=== PATIENT | female | born 1945 | race Caucasian/White ===

== ENCOUNTER 2023-07-30 10:09 | Emergency (ER) | payer MEDICARE, SELFPAY ==
[2023-07-30 10:20] VITALS: BP 184/84; PULSE 88; RESP 18; TEMP 36.7; O2SAT 94; BMI 25.6
--- NOTE | 2023-07-30 10:34 | CRLHL7_ITS ---
For Patients: As a result of the Cures Act, medical imaging exams and procedure reports are released immediately into your electronic medical record. You may view this report before your referring provider. If you have questions, please contact your health care provider. INDICATION: shortness of breath TECHNIQUE: Chest 2 views COMPARISON: None FINDINGS: There is cardiac silhouette enlargement. Ectatic aorta. No infiltrate or edema. No pneumothorax. No fracture. Suspect hiatal hernia. IMPRESSION: No acute findings. Dictated by Aneesh De Anda MD @ 07/30/2023 11:23:37 AM (Electronically Signed)
--- NOTE | 2023-07-30 11:00 | CRLHL7_ITS ---
For Patients: As a result of the Century Cures Act, medical imaging exams and procedure reports are released immediately into your electronic medical record. You may view this report before your referring provider. If you have questions, please contact your health care provider. INDICATION: RUQ and right back pain. COMPARISON: none TECHNIQUE: Real time haywood scale imaging and color Doppler analysis was performed of the right upper quadrant. FINDINGS: The patient`s liver is of normal size and has uniform echogenicity. There is a normal appearance of the hepatic IVC and proximal abdominal aorta. There is no evidence of ascites. The gallbladder is of normal size and there are echogenic foci within the gallbladder lumen measuring up to 6 millimeters. The gallbladder wall measures 1.4 mm in thickness. The common bile duct is of normal size and measures 4 mm in diameter at the level of the aleksandra hepatis. The pancreas appears normal. There is no evidence of a stone or hydronephrosis within the right kidney. The right kidney measures 8.0 cm in length. IMPRESSION: Cholelithiasis. Dictated by Aneesh De Anda MD @ 07/30/2023 12:15:21 PM (Electronically Signed)
[2023-07-30 11:01] VITALS: O2SAT 97
--- NOTE | 2023-07-30 11:23 | ED_ITS ---
HPI - General Adult General Chief complaint: Abdominal Pain Stated complaint: abdominal pain Time Seen by Provider: 07/30/23 10:17 Source: patient Mode of arrival: ambulatory Limitations: no limitations History of Present Illness HPI narrative: 78-year-old female presenting today with right upper quadrant abdominal pain that started last night. Patient had fried fish for dinner. States that the pain is constant, nothing makes it better or worse. However it does get worse in waves. The pain does not radiate. She also has a separate pain that she describes as chest pain, located anterior chest and is substernal. She states she has had that for approximately 2 months. She complains of feeling short of breath for 2 months as well. States that she has an echocardiogram scheduled sometime in August. She is here today because of the right upper quadrant pain, chest pain is unchanged. She denies any fevers or chills. She denies having pain like this before. She denies nausea or vomiting. Has not wanted to eat anything today. Past medical history significant for ruptured diaphragmatic hernia, history of stroke with mild dysarthria, COPD, memory loss, hyperlipidemia, hypertension. Recent episode of bradycardia, metoprolol was stopped. Related Data Home Medications Medication Instructions Recorded Confirmed albuterol sulfate 90 mcg/actuation 2 puff inhalation Q6H PRN 06/21/23 07/30/23 aerosol inhaler atorvastatin 40 mg tablet (Lipitor) 40 mg PO QDAY 06/21/23 07/30/23 aspirin 81 mg tablet,delayed 81 mg PO QDAY 07/04/23 07/30/23 release coenzyme Q10 100 mg capsule 100 mg PO QDAY 07/04/23 07/30/23 (CoQ-10) ginkgo biloba 40 mg tablet 40 mg PO QDAY 07/04/23 07/30/23 ginkgo biloba leaf extract 120 1 tab PO .COMPLEX 07/04/23 07/30/23 mg-choline bitartrate 110 mg tablet ([facility] loratadine 10 mg tablet (Allergy 10 mg PO QDAY 07/04/23 07/30/23 Relief (loratadine)) potassium gluconate 550 mg (90 mg) 550 mg PO QDAY 07/04/23 07/30/23 tablet turmeric root extract 500 mg 500 mg PO QDAY 07/04/23 07/30/23 capsule Previous Rx's Medication Instructions Recorded enalapril maleate 5 mg tablet 5 mg PO ONCE 30 days #30 tabs 07/26/23 Allergies Allergy/AdvReac Type Severity Reaction Status Date / Time ciprofloxacin Allergy Verified 07/30/23 08:50 grass pollen Allergy Verified 07/30/23 08:50 Review of Systems Status of ROS: Reports: 10 or more systems reviewed and unremarkable except as noted in History and below [facility] Medical History History of breast cancer ?Z85.3 - Personal history of malignant neoplasm of breast (ICD-10) Surgical History Postoperative rupture of diaphragm History of bunionectomy ?Z98.890 - Other specified postprocedural states (ICD-10) History of colonoscopy ?Z98.890 - Other specified postprocedural states (ICD-10) History of rhinoplasty ?Z98.890 - Other specified postprocedural states (ICD-10) History of foot surgery ?Z98.890 - Other specified postprocedural states (ICD-10) History of vaginal hysterectomy ?Z90.710 - Acquired absence of both cervix and uterus (ICD-10) History of D&C ?Z98.890 - Other specified postprocedural states (ICD-10) History of tubal ligation ?Z98.51 - Tubal ligation status (ICD-10) Status post repair of paraesophageal diaphragmatic hernia ?Z98.890 - Other specified postprocedural states (ICD-10) ?Z87.19 - Personal history of other diseases of the digestive system (ICD-10) History of lumpectomy of right breast ?Z98.890 - Other specified postprocedural states (ICD-10) Family History Mother Stroke Coronary artery disease Myocardial infarction Kidney disease Father Myocardial infarction Sister Depression Osteoarthritis Heart disease Daughter Myocardial infarction DVT (deep venous thrombosis) Son Myocardial infarction Nicotine dependence Celiac disease Son HIV (human immunodeficiency virus infection) Sister of unknown cause Alcohol abuse Lung disease Blood disease Social History Narrative: . 3 children. Retired. Non-smoker. No illicit drug use. Alcohol, rare. Smoking Status: Never smoker Do you use any of these nicotine containing products: None Second hand tobacco smoke exposure: No How often do you have a drink containing alcohol: never AUDIT-C Alcohol total score: 0 Non-prescribed substance use: denies use service: No Exam Narrative: Exam Narrative: Well-nourished well-developed patient in no acute distress. Alert and oriented x3. Answers questions appropriately. Mood and affect are appropriate. Thoughts are goal oriented and rational. No tangential or magical thinking noted. Patient speaks in full sentences without needing to catch her breath. She does have mild dysarthria. HEENT: Normocephalic atraumatic. Pupils are equally round reactive to light. Extraocular muscles are intact. Conjunctivae are moist without any icterus noted. Moist mucous membranes. Neck is soft. Cardiovascular: Heart is regular rate and rhythm. She also has some discomfort with palpation of the sternum. Lungs: Clear to auscultation bilaterally no wheezes rhonchi or rales are appreciated. Deep breaths cause discomfort in the right upper quadrant. Abdomen: Soft and nondistended with normal bowel sounds. She has right upper quadrant tenderness with a positive Brock sign. Mild epigastric tenderness. Extremities: Bilateral lower extremities are without edema. Skin: Well perfused without any obvious rashes. Const: Vital Signs, click to edit/add: Vital Signs - 24 hr 07/30/23 10:20 07/30/23 11:01 07/30/23 12:35 Temperature 98.1 F 97.8 F Pulse Rate [Right Pulse Oximeter] 88 78 Respiratory Rate 18 16 Blood Pressure [Ri ght Upper Arm] 184/84 H 155/71 H Pulse Oximetry 94 97 96 Oxygen Delivery Me thod Room Air Room Air Course Course ED Course: CBC was unremarkable. D-dimer within normal limits. Chemistries, LFTs and CRP normal. Normal troponin. EKG done read by me, shows normal sinus rhythm with a pulse of 80. Chest x-ray, read by me, does not show any acute pathology. Urinalysis was unremarkable. Right upper quadrant ultrasound shows cholelithiasis. Patient received Tylenol while she was here, her pain did subside. Vital Signs Vital signs: Initial Vital Signs Temperature 98.1 F 07/30/23 10:20 Temperature Source Temporal Artery Scan 07/30/23 10:20 Pulse Rate 88 07/30/23 10:20 Respiratory Rate 18 07/30/23 10:20 Blood Pressure 184/84 H 07/30/23 10:20 Blood Pressure Mean 117 H 07/30/23 10:20 Blood Pressure Position Sitting 07/30/23 10:20 Pulse Oximetry 94 07/30/23 10:20 Oxygen Delivery Method Room Air 07/30/23 10:20 Vital Signs Temperature 98.1 F 07/30/23 10:20 Pulse Rate 88 07/30/23 10:20 Respiratory Rate 18 07/30/23 10:20 Blood Pressure 184/84 H 07/30/23 10:20 Pulse Oximetry 94 07/30/23 10:20 Oxygen Delivery Method Room Air 07/30/23 10:20 Temperature 97.8 F 07/30/23 12:35 Pulse Rate 78 07/30/23 12:35 Respiratory Rate 16 07/30/23 12:35 Blood Pressure 155/71 H 07/30/23 12:35 Pulse Oximetry 96 07/30/23 12:35 Oxygen Delivery Method Room Air 07/30/23 12:35 Medications Administered Medications: Discontinued Medications Generic Name Dose Route Start Last Admin Trade Name Jcq PRN Reason Stop Dose Admin Acetaminophen 1,000 mg 07/30/23 12:25 07/30/23 12:30 Acetaminophen 500 Mg Tablet PO 07/30/23 12:26 1,000 mg ONCE ONE Administration Morphine Sulfate 2 mg 07/30/23 11:19 07/30/23 12:30 Morphine 2 Mg/Ml Inj IVP 07/30/23 11:20 Not Given ONCE ONE Medical Decision Making MDM Narrative Medical decision making narrative: 78-year-old female with cholelithiasis. She is currently pain-free. Patient will be discharged home with Tylenol as needed for pain (she does not want any narcotics), bland diet and follow up with outpatient surgery. Medical Records Medical records reviewed: Yes I reviewed the patient's medical records Lab Data Lab results reviewed: Yes I reviewed the patient's lab results Labs: Lab Results 07/30/23 07/30/23 Range/Units 10:50 12:25 WBC 5.36 (4.50-11.00) K/uL RBC 4.37 (4.00-5.20) m/uL Hgb 12.9 (12.0-16.0) gm/dL Hct 38.9 (33.0-51.0) % MCV 89 (80-100) fL MCH 30 (26-34) pg MCHC 33 (32-36) gm/dL RDW Coeff of Eve 12.1 (11.5-15.5) % Plt Count 249 (140-440) K/uL Neut % (Auto) 57.6 (42.0-72.0) % Lymph % (Auto) 29.9 (20-44) % [place] % (Auto) 8.8 (0.0-11.0) % Eos % (Auto) 2.6 (0.0-7.0) % Baso % (Auto) 0.2 (0.0-3.0) % Neut # (Auto) 3.09 (1.7-7.0) K/uL Lymph # (Auto) 1.60 (0.90-2.90) K/uL [place] # (Auto) 0.50 (0.00-0.90) K/UL Eos # (Auto) 0.14 (0.00-0.50) K/uL Baso # (Auto) 0.01 (0.00-0.30) K/uL Abs Immat Gran (auto) 0.05 (0.00-0.30) K/uL Imm/Tot Granulo (auto) 0.9 % D-Dimer Quant (PE/DVT) 0.48 (0.00-0.50) ug/ml Sodium 140 (135-149) mmol/L Potassium 4.2 (3.6-5.1) mmol/L Chloride 105 (96-114) mmol/L Carbon Dioxide 24 (20-32) mmol/L Anion Gap 11 (7-15) mEq/L BUN 15 (7-30) mg/dL Creatinine 0.6 (0.5-1.5) mg/dL Estimated Creat Clear 35.49 Estimated GFR 91 ml/min Glucose 113 (60-115) mg/dL Lactate 0.8 (0.5-1.9) mmol/L Calcium 9.7 (8.4-10.6) mg/dL Total Bilirubin 0.5 (0.1-1.5) mg/dL Direct Bilirubin 0.1 (0.0-0.5) mg/dL AST 30 (12-35) U/L ALT 19 (4-35) U/L Alkaline Phosphatase 76 (40-150) U/L Troponin I < 0.01 L (0.01-0.04) ng/mL C-Reactive Protein < 0.5 L (0.5-1.0) mg/dL Total Protein 8.5 H (6.0-8.3) g/dL Albumin 5.0 (3.3-5.0) g/dL Lipase 133 (23-300) U/L Urine Color Yellow (Yellow) Urine Appearance Clear (Clear) Urine pH 7.0 (5.0-8.5) Ur Specific [place] 1.015 (1.000-1.030) Urine Protein Negative (Negative) Urine Glucose (UA) Negative (Negative) Urine Ketones Negative (Negative) Urine Blood Negative (Negative) Urine Nitrite Negative (Negative) Urine Bilirubin Negative (Negative) Urine Urobilinogen 0.2 (0.2-1.0) Ur Leukocyte Esterase Trace A (Negative) Urine RBC 0-2 (0-2) Urine WBC 0-2 (0-5) Ur Squamous Epith Cells Few (None-Few) Urine Bacteria Few A (None) Imaging Data Chest x-ray: Attestation: I have reviewed the pertinent imaging results. Radiologist's impression: Chest 2 views COMPARISON: None FINDINGS: There is cardiac silhouette enlargement. Ectatic aorta. No infiltrate or edema. No pneumothorax. No fracture. Suspect hiatal hernia. IMPRESSION: No acute findings. US - abdomen: Attestation: I have reviewed the pertinent imaging results. Radiologist's impression: Real time haywood scale imaging and color Doppler analysis was performed of the right upper quadrant. FINDINGS: The patient`s liver is of normal size and has uniform echogenicity. There is a normal appearance of the hepatic IVC and proximal abdominal aorta. There is no evidence of ascites. The gallbladder is of normal size and there are echogenic foci within the gallbladder lumen measuring up to 6 millimeters. The gallbladder wall measures 1.4 mm in thickness. The common bile duct is of normal size and measures 4 mm in diameter at the level of the aleksandra hepatis. The pancreas appears normal. There is no evidence of a stone or hydronephrosis within the right kidney. The right kidney measures 8.0 cm in length. IMPRESSION: Cholelithiasis. Discharge Plan Discharge Clinical Impression: Cholelithiasis Patient Disposition: Home, Self-Care Condition: Stable Additional Instructions: You will need to follow-up with a general surgeon to discuss removing the gallbladder. Phone number to our [facility] will be provided to you. Okay to take Tylenol 1000 mg every 8 hours as needed for pain, should the pain return. Recommend a very bland diet until you see the surgeon: Fruits, vegetables, bread. Return to the ER if the pain returns and is not controlled, you develop fever or you cannot stop vomiting. Prescriptions: No Action coenzyme Q10 [CoQ-10] 100 mg capsule 100 mg PO QDAY ginkgo biloba 40 mg tablet 40 mg PO QDAY Rx Instructions: give with meal/snack aspirin 81 mg tablet,delayed release (DR/EC) 81 mg PO QDAY loratadine [Allergy Relief (loratadine)] 10 mg tablet 10 mg PO QDAY potassium gluconate 550 mg (90 mg) tablet 550 mg PO QDAY turmeric root extract 500 mg capsule 500 mg PO QDAY [facility] Memory Support 120 mg- 110 mg tablet 1 tab PO .COMPLEX Rx Instructions: 1 tab orally; enalapril maleate 5 mg tablet 5 mg PO ONCE 30 Days Qty: 30 0RF albuterol sulfate 90 mcg/actuation HFA aerosol inhaler 2 puff inhalation Q6H PRN atorvastatin [Lipitor] 40 mg tablet 40 mg PO QDAY Follow Up/Referrals: Jesika Reeder APRN, [employer] [Primary Care Provider] - Stand Alone Forms: [employer] Info Instructions
[2023-07-30 11:29] LABS: Basophils Absolute Auto 0.01 K/uL (0.00-0.30); Basophils Percent Auto 0.2 % (0.0-3.0); Eosinophils Absolute Auto 0.14 K/uL (0.00-0.50); Eosinophils Percent Auto 2.6 % (0.0-7.0); Hematocrit 38.9 % (33.0-51.0); Hemoglobin* 12.9 gm/dL (12.0-16.0); Immature Granulocytes Abs Auto 0.05 K/uL (0.00-0.30); Immature Granulocytes Pct Auto 0.9 %; Lymphocytes Percent Auto 29.9 % (20-44); Mean Corpuscular HGB Conc 33 gm/dL (32-36); Mean Corpuscular Hemoglobin 30 pg (26-34); Mean Corpuscular Volume 89 fL (80-100); Monocytes Percent Auto 8.8 % (0.0-11.0); Neutrophils Absolute Auto 3.09 K/uL (1.7-7.0); Neutrophils Percent Auto 57.6 % (42.0-72.0); Platelet Count* 249 K/uL (140-440); RDW Coefficient of Variation % 12.1 % (11.5-15.5); Red Blood Count 4.37 m/uL (4.00-5.20); White Blood Count* 5.36 K/uL (4.50-11.00)
[2023-07-30 11:30] LABS: Lactate* 0.8 mmol/L (0.5-1.9)
[2023-07-30 11:40] LABS: Chloride* 105 mmol/L (96-114); Potassium* 4.2 mmol/L (3.6-5.1); Sodium* 140 mmol/L (135-149)
[2023-07-30 11:42] LABS: Alkaline Phosphatase* 76 U/L (40-150); Aspartate Amino Transferase* 30 U/L (12-35); Bilirubin Direct* 0.1 mg/dL (0.0-0.5); Bilirubin Total* 0.5 mg/dL (0.1-1.5); Lipase* 133 U/L (23-300); Total Protein* 8.5 g/dL (6.0-8.3)
[2023-07-30 11:43] LABS: Alanine Aminotransferase* 19 U/L (4-35); Creatinine* 0.6 mg/dL (0.5-1.5); Est. Creatinine Clearance* 35.49; Estimated Glomerular Filt Rate 91 ml/min
[2023-07-30 11:44] LABS: Anion Gap 11 mEq/L (7-15); Blood Urea Nitrogen* 15 mg/dL (7-30); Calcium* 9.7 mg/dL (8.4-10.6); Carbon Dioxide* 24 mmol/L (20-32); Glucose* 113 mg/dL (60-115); Slide Review Reflex No
[2023-07-30 11:45] LABS: D Dimer Quantitative* 0.48 ug/ml (0.00-0.50)
[2023-07-30 11:47] LABS: C Reactive Protein* < 0.5 mg/dL (0.5-1.0)
--- NOTE | 2023-07-30 11:47 | PC.NURSE ---
Pt states she is having no pain right rib, ruq currently. s/o headache 11/14. declines morphine as it 'makes me very nauseous.
[2023-07-30 11:55] LABS: Troponin I* < 0.01 ng/mL (0.01-0.04)
[2023-07-30] MEDS: ACETAMINOPHEN 500 MG TABLET 1000 MG PO (12:30)
[2023-07-30 12:35] VITALS: BP 155/71; PULSE 78; RESP 16; TEMP 36.6; O2SAT 96
[2023-07-30 12:35] LABS: Appearance Urine Clear (Clear); Bilirubin Urine Negative (Negative); Blood Urine Negative (Negative); Color Urine Yellow (Yellow); Glucose Urine Negative (Negative); Ketones Urine Negative (Negative); Leukocyte Esterase Urine Trace (Negative); Nitrite Urine Negative (Negative); Protein Urine Negative (Negative); Specific Gravity Urine 1.015 (1.000-1.030); Urobilinogen Urine 0.2 (0.2-1.0)
--- NOTE | 2023-07-30 12:35 | PC.NURSE ---
Pt drinking water and eating saltines. Tylenol given for headache 11/14. Denies any recurring chest or rib pain.
[2023-07-30 12:47] LABS: Bacteria Urine Few; RBC Urine 0-2 (0-2); Squamous Epithelial Cell Urine Few (None-Few); WBC Urine 0-2 (0-5)
== END 2023-07-30 13:28 | disposition home or self-care (01) ==
PROVIDERS: Emergency Provider Family Medicine; PCP Nurse Practitioner Family
DX: K80.20 Calculus of gallbladder without cholecystitis without obstruction (principal)
CPT/HCPCS: 36415; 71046; 76705; 80048; 80076; 81001; 83605; 83690; 84484; 85025; 85379; 86140; 87086; 93005; 94761; 96374; 99284; 99285; A9270

== ENCOUNTER 2023-08-15 14:32 | Outpatient (CLI) | payer MEDICARE, SELFPAY | END 2023-08-15 14:33 | disposition home or self-care (01) | LOC: RAD 14:34 | PROVIDERS: PCP Nurse Practitioner Family; Visit Provider Nurse Practitioner Family | DX: R00.1 Bradycardia, unspecified (principal); I34.0 Nonrheumatic mitral (valve) insufficiency | CPT/HCPCS: 93306 ==

== ENCOUNTER 2023-08-21 13:39 | Outpatient (CLI) | payer MEDICARE, SELFPAY | END 2023-08-21 13:40 | disposition home or self-care (01) | LOC: RAD 13:40 | PROVIDERS: PCP Nurse Practitioner Family; Visit Provider Nurse Practitioner Family | DX: R00.1 Bradycardia, unspecified (principal) | CPT/HCPCS: 93225; 93226 ==

== ENCOUNTER 2023-08-27 10:08 | Outpatient (CLI) | payer MEDICARE, SELFPAY | END 2023-08-27 10:09 | disposition home or self-care (01) | PROVIDERS: PCP Nurse Practitioner Family; Visit Provider Nurse Practitioner Family | DX: I10 Essential (primary) hypertension (principal); Z79.899 Other long term (current) drug therapy | CPT/HCPCS: 80053; 85025 ==

== ENCOUNTER 2023-10-15 07:36 | Outpatient (CLI) | payer MEDICARE, SELFPAY ==
[2023-10-15] MEDS: REGADENOSON 0.4 MG/5 ML SYRINGE IVP (09:20)
[2023-10-15] MEDS: SODIUM CHLORIDE 0.9 % (FLUSH) 10 ML SYRINGE IVF (09:20)
[2023-10-15 10:00] VITALS: BP 146/82; PULSE 99; RESP 16
--- NOTE | 2023-10-15 10:52 | W.PM.STED ---
Stress Test Note Date Date of test: 10/15/23 Providers Primary care provider: Jesika Reeder Stress test physician: Ari Junior Stress Test Note Stress test ordered: Lexiscan Indication for test: chest pain Stress test medicine: Lexiscan Results discussion: This pleasant 78-year-old female presents here for the above test after discussion the risks benefits side effects and review of the cardiac stress test medical history form she would like to proceed. Pretest EKG shows normal sinus rhythm, there is some ST wave irregularities noted over the precordial leads. At baseline peer initial rhythm is sinus, ventricular rate is 84 blood pressure 146 on 81. Standard Lexiscan walking protocol is done over a 5 minute. Her maximum heart rate was 128 which is 107% of the maximum. She tolerated the test well with a little bit of nausea, and some mild chest discomfort. This resolved in her recovery. No acute ST wave changes are noted on review of the tracing, there is no dysrhythmias, Impression: Negative electrographic portion of Lexiscan Follow up suggested: Await review from nuclear Medicine and Cardiology. Clinical correlation with this will be needed she recovered fully, and left this testing facility in excellent condition.
== END 2023-10-15 07:37 | disposition home or self-care (01) ==
LOC: STRESS 07:36
PROVIDERS: PCP Nurse Practitioner Family; Visit Provider Family Medicine
DX: Z01.818 Encounter for other preprocedural examination (principal); R07.9 Chest pain, unspecified; Z86.73 Personal history of transient ischemic attack (TIA), and cerebral infarction without residual deficits; E78.00 Pure hypercholesterolemia, unspecified
CPT/HCPCS: 78452; 93016; 93017; A9500; J2785

== ENCOUNTER 2023-10-29 13:05 | Outpatient (CLI) | payer MEDICARE, SELFPAY | END 2023-10-29 13:06 | disposition home or self-care (01) | PROVIDERS: PCP Nurse Practitioner Family; Visit Provider Nurse Practitioner Family | DX: Z01.818 Encounter for other preprocedural examination (principal) | CPT/HCPCS: 80053; 85025 ==

== ENCOUNTER 2023-11-04 07:28 | Day surgery (SDC) | payer MEDICARE, SELFPAY ==
[2023-11-04] VITALS (27 sets, daily range): BP systolic 59–148; BP diastolic 34–85; PULSE 41–91; RESP 16–20; TEMP 36.1–36.6; O2SAT 91–98; BMI 26.8
--- OUTSIDE RECORDS SUMMARY | 2023-11-04 07:30 | XMS_ITS | Clinical Summary ---
Author Name Unknown Organization [facility] Address [place], [place] [address] Care Team Providers Care Travel Services Professional Name Role Phone None, Dr Eddy Luna, Lilliam Richard MD Primary Care Provider [phone] Allergies Active Allergy Reactions Criticality Noted Date Comments Ciprofloxacin Nausea Only Low 02/27/2016 Grass Pollen *Unknown Unknown 10/17/2021 Medications Medication Sig Dispensed Refills Start Date End Date Status ALBUTEROL 90 MCG/ACTUATION AEROSOL INHALER inhale 1 puff by inhalation route every 4-6 hours as needed 0 Active nebulizer accessories kitIndications:Labor Relations Consultant trisha obstructive pulmonary disease, unspecified COPD type (HC) For home use. Length of need: 99 1 Kit 08/22/2022 Active atorvastatin (LIPITOR) 40 mg tabletIndications:H ypercholesterolemia Take 1 Tablet (40 mg) by mouth at bedtime. 90 Tablet 3 02/27/2023 Active metoprolol succinate (TOPROL XL) 50 mg sustained-release tabletIndications:E ssential hypertension Take 1 Tablet (50 mg) by mouth once daily. 100 Tablet 2 02/27/2023 Active albuterol HFA (PRO-AIR; VENTOLIN; PROVENTIL) 90 mcg/actuation inhalerIndications: Chronic obstructive pulmonary disease, unspecified COPD type (HC) INHALE 1 TO 2 INHALATIONS BY MOUTH EVERY 4 HOURS IF NEEDED FOR SHORTNESS OF BREATH OR WHEEZING 51 g 3 05/06/2023 Active Active Problems Problem Noted Date Diagnosed Date Essential hypertension History of stroke Overview: 2019, with significant loss of speech Hypercholesterolemia Encounters Date Type Department Care Team Description 10/16/[address] [place] [address] Дмитрий Felix MD Results (Stress test and cardiology clearance for GB surgery) 10/15/2023 9:00 AM CDT Ancillary Procedure [facility] [address] [place] [address] 10/04/2023 11:00 AM CDT Office Visit [facility] [address] [place] [address] Дмитрий Felix MD Consult 08/23/2023 Orders Only [facility] [address] [place] [id number] Yi Jessica 1 scan: (1-Ord) Holter Report ([id number]) 08/21/2023 10:07 AM MOTOR EQUIPMENT CAPTAIN - 08/21/2023 11:59 PM MOTOR EQUIPMENT CAPTAIN Hospital Encounter [facility] [address] [place] [id number] Jesika Reeder NP 08/15/2023 3:00 PM MOTOR EQUIPMENT CAPTAIN Ancillary Procedure [address] [address] from Last 3 Months Immunizations Name Administration Dates Next Due COVID-19 vaccine (NPC III-Bio NTech 30mcg/0.3mL) 12YO+ ARELY-SUCROSE JEFFERY KIRBY 04/02/2021,10/02/2020,09/09/2020 Influenza, High-dose Quadriv alent Inactivated 04/10/2022,04/02/2021 Pneumococcal Conj 20-valent (Prevnar 20) 023 Pneumococcal conj 13-Valent (Prevnar 13) 016 Tdap 12/27/2020,12/22/2015 Zoster (Shingrix-RZV, recombinant) 08/22/2022 Family History Medical History Relation Name Comments Deep vein thrombosis Daughter Heart attack Daughter Heart attack Father Heart Disease Mother Heart attack Mother Kidney disease Mother Stroke Mother Arthritis Sister 1 Heart Disease Sister 1 Heart Disease Sister 2 Alcoholism Sister 3 Lung disease Sister 3 Blood Disease Sister 4 Relation Name Status Comments Daughter Alive Father Mother Sister 1 Alive Sister 2 Alive Sister 3 Alive Sister 4 Son Alive Social History Tobacco Use Types Packs/Day Years Used Date Smoking Tobacco: Never Smokeless Tobacco: Never Tobacco Cessation:Counseling Given: Yes Alcohol Use Standard Drinks/Week Comments Yes 0 (1 standard drink = 0.6 oz pur e alcohol) occasionally wine PHQ-2 Answer Date Recorded PHQ-2 TOTAL SCORE 0 08/22/2022 Social Connections Answer Date Recorded Frequency of Communication with Friends and Fami ly Not on file 11/10/2022 Financial Resource Strain Answer Date R ecorded Difficulty of Paying Living Expenses 3 11/07/2021 Difficulty of Paying Living Expenses Not on file 11/07/2021 Food Insecurity Answer Date Recorded Worried About Running Out of Food in the Last Ye ar 1 11/07/2021 Transportation Needs Answer Date Record ed Lack of Transportation (Medical) 1 11/07/2021 Housing Stability Answer Date Recorded Unable to Pay for Housing in the Last Year 1 11/07/2021 Sex and Gender Information Value Date Recorded Sex Assigned at Not on file Gender Identity Not on file Sexual Orientation Not on file Obstetrics History Last Filed Vital Signs Vital Sign Reading Time Taken Comments Blood Pressure 144/82 10/04/2023 11:27 AM CDT Pulse 70 10/04/2023 11:27 AM CDT Temperature 36.4 ??C (97.6 ??F) 11/10/2022 12:56 PM C DT Respiratory Rate 16 10/04/2023 11:27 AM CDT Oxygen Saturation 94% 11/10/2022 1:41 PM CDT Inhaled Oxygen Concentration - - Weight 66.2 kg (146 lb) 10/04/2023 11:27 AM CDT Height 157.5 cm (5' 2) 11/13/2022 10:39 AM CDT Body Mass Index 26.7 11/13/2022 10:39 AM CDT Plan of Treatment Health Maintenance Due Date Last Done Comments DEXA/DXA scan for age 65+ 02/08/2008 Zoster (shingles) series for age 50+ (2 of 2) 10/17/2022 08/22/2022 Depression screening for age 12+ 08/22/2023 08/22/19 23 Medicare Wellness for age 65+ 08/23/2023 08/22/2022 BMI (ht and wt on same day) for age 18+ 11/14/2023 11/13/2022, 08/22/2022, 12/13/2021, Additional history exists Influenza for age 65+ 03/08/2024 04/10/2022, 021 Tetanus booster 12/27/2030 12/27/2020, 12/22/2015 Tdap Completed 12/27/2020, 12/22/2015 Pneumococcal series for age 65+ Completed 3, 12/22/2015 COVID-19 vaccine series Completed 05/01/20, 04/10/2022, 04/02/2021, Additional history exists Medical Devices Implanted Type Area Dry Cleaning Machine Operator Device Identifier Shelf Expiration Date Model / Serial / Lot Pin Cortical 2.4mm Pretreat - [id number] Implanted:Qty: 2 on 11/18/2006 at [facility] Right: Foot Musculoskeletal Transplant [id number] / [id number] / Description:LOGGED AND YENIFER [employer] Scre[employer] Frs [id number] - [id number] Implanted:Qty: 1 on 11/18/2006 at [facility] Right: Foot DEPUY [id number] / / Screw Ti Cortex [id number] Self-Tapping - [id number] Implanted:Qty: 1 on 11/18/2006 at [facility] Right: Foot [employer] [id number] # / / Screw Ti Cortex [id number] Self-Tapping - [id number] Implanted:Qty: 1 on 11/18/2006 at [facility] Right: Foot [employer] [id number] # / / Procedures Procedure Name Priority Date/Time Associated Diagnosis Comments NM CARDIAC MPI STRESS TEST Routine 10/15/2023 11:38 AM CDT Personal history of transient ischemic attack Chest pain HOLTER MONITOR 48 HOURS Routine 08/30/2023 12:00 AM MOTOR EQUIPMENT CAPTAIN Bradycardia ECHO TTE COMPLETE WO CONTRAST Routine 08/15/2023 3:29 PM MOTOR EQUIPMENT CAPTAIN Bradycardia HTN (hypertension) from Last 3 Months Results * NM CARDIAC MPI STRESS TEST (10/15/2023 11:38 AM CDT) Anatomical Region Laterality Modality HEART Ultrasound 10/15/2023 8:43 AM CDT Narrative 10/15/2023 4:28 PM CDT ? Toll -free: [phone] ?[employer] ?MYOCARDIAL PERFUSION IMAGING REPORT REST/STRESS SINGLE ISOTOPE GATED SPECT IMAGING. Patient Name: ?? RADHA THOMAS ? Gender: ? F ? Height: ? 66 in Accession #: ?[id number] ?Weight: ? 148 lb Study Date: ? 10/15/2023 8:43:55 AM ?BSA: ?1.76 m? ? ? : ?1945 78 years ?BMI: ?23.89 kg/m? ? ? Ord. Prov.: ? ДМИТРИЙ FELIX ?Monitoring Prov.: Ari Junior [facility] Clinical History: ? Chest pain, dyspnea and fatigue. No known coronary artery ?disease. Cardiac Risk Factors: Hypertension, hypercholesterolemia and family history of ?heart disease. Other Symptomatology: TIA, asthma, COPD. Cardiac History: ?None known. Beta valentín/calcium channel valentín/nitrate taken today: No. Caffeine/methylxanthine taken within 12 hrs: ?No. Chest pain/discomfort at baseline: ?No. IMPRESSION 1. Adequate pharmacologic stress test with regadenoson and low level exercise. 2. See separate report for EKG intrepretation. 3. Left ventricular cavity size was normal (resting EDV 46 ml). 4. Overall left ventricular systolic function was normal without wall motion abnormalities. The post stress LVEF was calculated to be 57 %. 5. Myocardial perfusion was normal. 6. There were no prior studies available for comparison. STRESS MPI PROCEDURE The patient was studied utilizing a same day rest/stress protocol. Myocardial perfusion imaging was performed at rest, 22 minutes following the intravenous injection of 8.43 mCi of 99mTc sestamibi. 30 seconds after the 15 second IV regadenoson injection, the patient was injected via IV with 31.1 mCi of 99mTc sestamibi. Gated post-stress tomographic imaging was performed 31 minutes after stress. After image acquisition was completed, data was reconstructed in short, horizontal long and vertical long axis views and tomographic slices were generated. - Pharmacologic stress testing was performed with an IV regadenoson dose of 0.4 mg. - Low level exercise consisting of walking on treadmill at 1.6 mph with a 0% grade was performed for 1 minute prior to, during, and 2 minutes after the vasodilator infusion. - Resting heart rate was 84 bpm, peak heart rate was 126 bpm. - Resting blood pressure was 146 mmHg/81 mmHg; peak blood pressure was 152 mmHg/88 mmHg. - Patient did not develop significant symptoms. Imaging - The overall quality of the study was good with mild. Computerized motion correction was not applied to rest and stress studies. - SPECT perfusion images were normal without evidence of ischemia or infarction. - Computer processed gated imaging revealed normal left ventricular size with a calculated LVEF of 57 %. (Lab normals: LVEF >50%, LV Size <150 ml). Post stress gated imaging revealed normal left ventricular size with an EDV of 46 ml, ESV of 20 ml and calculated LVEF of 57 %. (Lab normals: LVEF >50%, LV Size <150 ml). - There was normal post-stress myocardial thickening and wall motion. - No other wall motion abnormalities were identified. - No right ventricular abnormalities were identified. - There was no evidence of abnormal lung or extracardiac activity. - Risk/extent of ischemia per ACC Noninvasive Risk Stratification Guideline: LOW RISK. This study was interpreted and electronically signed by Amari Rosas MD on 10/15/2023 4:28:02 PM. ??Final (Updated) ?? Procedure Note Amari Rosas MD - 10/16/2023 Toll -free: [phone] Red [employer]oon MYOCARDIAL PERFUSION IMAGING REPORT REST/STRESS SINGLE ISOTOPE GATED SPECT IMAGING. Patient Name: RADHA THOMAS Gender: Wayne Height: 66 in Weight: 148 lb Study Date: 10/15/2023 8:43:55 AM BSA: 1.76 m? ? ? : 1945 78 years BMI: 23.89kg/m? ? ? Ord. Prov.: ДМИТРИЙ FELIX Monitoring Prov.: Ari Junior Performing Site [facility] Clinical History: Chest pain, dyspnea and fatigue. No known coronaryartery disease. Cardiac Risk Factors: Hypertension, hypercholesterolemia and familyhistory of heart disease. Other Symptomatology: TIA, asthma, COPD. Cardiac History: None known. Beta valentín/calcium channel valentín/nitrate taken today: No. Caffeine/methylxanthine taken within 12 hrs: No. Chest pain/discomfort at baseline: No. IMPRESSION 1. Adequate pharmacologic stress test with regadenoson and low levelexercise. 2. See separate report for EKG intrepretation. 3. Left ventricular cavity size was normal (resting EDV 46 ml). 4. Overall left ventricular systolic function was normal without wallmotion abnormalities. The post stress LVEF was calculated to be 57 %. 5. Myocardial perfusion was normal. 6. There were no prior studies available for comparison. STRESS MPI PROCEDURE The patient was studied utilizing a same day rest/stress protocol.Myocardial perfusion imaging was performed at rest, 22 minutes followingthe intravenous injection of 8.43 mCi of 99mTc sestamibi. 30 seconds afterthe 15 second IV regadenoson injection, the patient was injected via IVwith 31.1 mCi of 99mTc sestamibi. Gated post-stress tomographic imagingwas performed 31 minutes after stress. After image acquisition wascompleted, data was reconstructed in short, horizontal long and verticallong axis views and tomographic slices were generated. - Pharmacologic stress testing was performed with an IV regadenoson doseof 0.4 mg. - Low level exercise consisting of walking on treadmill at 1.6 mph with a0% grade was performed for 1 minute prior to, during, and 2 minutes afterthe vasodilator infusion. - Resting heart rate was 84 bpm, peak heart rate was 126 bpm. - Resting blood pressure was 146 mmHg/81 mmHg; peak blood pressure [id number] mmHg/88 mmHg. - Patient did not develop significant symptoms. Imaging - The overall quality of the study was good with mild. Computerizedmotion correction was not applied to rest and stress studies. - SPECT perfusion images were normal without evidence of ischemia orinfarction. - Computer processed gated imaging revealed normal left ventricular sizewith a calculated LVEF of 57 %. (Lab normals: LVEF >50%, LV Size <150 ml). Poststress gated imaging revealed normal left ventricular size with an EDV of 46 ml,ESV of 20 ml and calculated LVEF of 57 %. (Lab normals: LVEF >50%, LV Size <150ml). - There was normal post-stress myocardial thickening and wall motion. - No other wall motion abnormalities were identified. - No right ventricular abnormalities were identified. - There was no evidence of abnormal lung or extracardiac activity. - Risk/extent of ischemia per ACC Noninvasive Risk StratificationGuideline: LOW RISK. This study was interpreted and electronically signed by Amari Rosas MD on 10/15/2023 4:28:02 PM. Final (Updated) Дмитрий Felix MD NM * HOLTER MONITOR 48 HOURS (08/30/2023 12:00 AM MOTOR EQUIPMENT CAPTAIN) Jesika Reeder NP CARDIAC SERVICES O RD * ECHO TTE COMPLETE WO CONTRAST (08/15/2023 3:29 PM MOTOR EQUIPMENT CAPTAIN) AORTIC VALVE MEAN PG 3 mmHg EJECTION FRACTION 60 % PEAK TR VELOCITY 2.1 m/s LVEDD 3.6 cm EJECTION FRACTION 60 - 65% Anatomical Region Laterality Modality Ultrasound 08/15/2023 3:00 PM MOTOR EQUIPMENT CAPTAIN Narrative 08/15/2023 4:05 PM MOTOR EQUIPMENT CAPTAIN ECHOCARDIOGRAM RADHA THOMAS ?Accession#: ?? [id number] : ?1945 78 years Study Date: ?? 08/15/2023 3:00:17 PM Gender: F ? BP: ? 147/90 mmHg Height: 157.00 cm ? BSA: ?1.67 m? ? ? Weight: 66.00 kg ?Tech: ? MJJ ?Referring MD: JESIKA REEDER Site: ? [facility] Reading Location: MOBILE-OP Patient Location: Outpatient. Procedure: 2D, Color Doppler and Spectral Doppler. Indication for study: Bradycardia; HTN (hypertension) Cardiac Rhythm: Regular.Study quality: Good. Final Impressions: 1. LVEF estimate 60-65%. Normal LV size and wall thickness. 2. Normal RV size and global systolic function. 3. Mild mitral regurgitation. 4. Normal PASP and RAP estimate. Chamber Sizes and Function Left atrial size is mildly enlarged. Right ventricular cavity size is normal, global systolic RV function is normal. The right atrium is normal. Right atrial area is 13 cm? ? ?. The pulmonary artery is not well visualized. The sinus of Valsalva is normal sized. The ascending aorta is normal sized. Valves, RV Pressures and Diastolic Function The aortic valve is normal in structure and trileaflet, no stenosis and no regurgitation. The mitral valve is normal in structure, mild mitral regurgitation. Mitral annular calcification is present. Indeterminate pattern of LV diastolic filling. The tricuspid valve is normal in structure. Tricuspid regurgitation is trace regurgitation. The tricuspid regurgitant velocity is 2.1 m/s, the estimated right ventricular systolic pressure is 17 mmHg plus right atrial pressure. There is normal estimated pulmonary pressure by tricuspid regurgitation velocity and right atrial pressure. The pulmonic valve is not well visualized. Trace pulmonary regurgitation. Masses, Effusion, Shunts There is no pericardial effusion. The inferior vena cava is normal sized, respiratory size variation greater than 50%. No left to right shunting was detected by limited color flow Doppler interrogation of the interatrial septum. MEASUREMENTS AND CALCULATIONS 2-D Measurements and LV Function: LVID (d) 3.6 cm LV FS% (2D) ?? 51 % LVID (s) 1.8 cm LVOT diameter 1.8 cm IVS (d) ??1.2 cm HR ?71 bpm LVPW (d) 1.5 cm LA Vol index ??28 ml/m2 Ao Sinus 3.2 cm RA area ? 13 cm? ? ? Asc Ao ?? 3.1 cm LA ? 3.6 cm Diastology: Mitral ?Tissue Doppler ?Pulmonary veins E Peak 0.8 m/s ??e', Septum ? 0.05 m/s Pulm s ?71.5 cm/s A Peak 1.2 m/s ??e', Lateral ?0.07 m/s Pulm d ?48.5 cm/s E/A ?0.7 ?E/e' Average ?? 13.19 ?Pulm s/d ratio ??1.47 DT ? 280 msec Aortic Valve: Vmax ? 1.1 m/s ??MICKEY (V) ?? 2.08 cm? ? ? VTI ?0.23 m ?? MICKEY (I) ?? 2.33 cm? ? ? LVOT V max 0.9 m/s ??Max PG ?5 mmHg LVOT VTI ?? 0.20 m ?? Mean PG ?? 3 mmHg SV ? 53 ml ?Dim Index 0.88 SV index ?? 32 ml/m? ? ? CO ?3.7 l/min ?CI ?2.2 l/min/m? ? ? Mitral Valve: MVA ? 2.7 cm? ? ? MV P 1/2 ??81 msec MV Mean G 2 mmHg MV VTI ?0.30 m Tricuspid Valve and estimated PA pressures: TR Vmax 2.1 m/s TAPSE 1.8 cm TR maxG 17 mmHg Pulmonic Valve: PIEDV 1.4 m/s . This study was interpreted by an [facility] accredited facility. ??Final ?? Procedure Note Matthew Coronado MD - 08/15/2023 ECHOCARDIOGRAM RADHA THOMAS : 1945 78 years Study Date: 08/15/2023 3:00:17 PM Gender: F BP: 147/90 mmHg Height: 157.00 cm BSA: 1.67 m? ? ? Weight: 66.00 kg Tech: HI Referring MD: JESIKA REEDER Site: [facility] Reading Location: MOBILE-OP Patient Location: Outpatient. Procedure: 2D, Color Doppler and Spectral Doppler. Indication for study: Bradycardia; HTN (hypertension) Cardiac Rhythm: Regular.Study quality: Good. Final Impressions: 1. LVEF estimate 60-65%. Normal LV size and wall thickness. 2. Normal RV size and global systolic function. 3. Mild mitral regurgitation. 4. Normal PASP and RAP estimate. Chamber Sizes and Function Left atrial size is mildly enlarged. Right ventricular cavity size isnormal, global systolic RV function is normal. The right atrium is normal.Right atrial area is 13 cm? ? ?. The pulmonary artery is not well visualized.The sinus of Valsalva is normal sized. The ascending aorta is normalsized. Valves, RV Pressures and Diastolic Function The aortic valve is normal in structure and trileaflet, no stenosis and noregurgitation. The mitral valve is normal in structure, mild mitralregurgitation. Mitral annular calcification is present. Indeterminatepattern of LV diastolic filling. The tricuspid valve is normal instructure. Tricuspid regurgitation is trace regurgitation. The tricuspidregurgitant velocity is 2.1 m/s, the estimated right ventricular systolicpressure is 17 mmHg plus right atrial pressure. There is normal estimatedpulmonary pressure by tricuspid regurgitation velocity and right atrialpressure. The pulmonic valve is not well visualized. Trace pulmonaryregurgitation. Masses, Effusion, Shunts There is no pericardial effusion. The inferior vena cava is normal sized,respiratory size variation greater than 50%. No left to right shunting wasdetected by limited color flow Doppler interrogation of the interatrialseptum. MEASUREMENTS AND CALCULATIONS 2-D Measurements and LV Function: LVID (d) 3.6 cm LV FS% (2D) 51 % LVID (s) 1.8 cm LVOT diameter 1.8 cm IVS (d) 1.2 cm HR 71 bpm LVPW (d) 1.5 cm LA Vol index 28 ml/m2 Ao Sinus 3.2 cm RA area 13 cm? ? ? Asc Ao 3.1 cm LA 3.6 cm Diastology: Mitral Tissue Doppler Pulmonary veins E Peak 0.8 m/s e', Septum 0.05 m/s Pulm s 71.5 cm/s A Peak 1.2 m/s e', Lateral 0.07 m/s Pulm d 48.5 cm/s E/A 0.7 E/e' Average 13.19 Pulm s/d ratio 1.47 DT 280 msec Aortic Valve: Vmax 1.1 m/s MICKEY (V) 2.08 cm? ? ? VTI 0.23 m MICKEY (I) 2.33 cm? ? ? LVOT V max 0.9 m/s Max PG 5 mmHg LVOT VTI 0.20 m Mean PG 3 mmHg SV 53 ml Dim Index 0.88 SV index 32 ml/m? ? ? CO 3.7 l/min CI 2.2 l/min/m? ? ? Mitral Valve: MVA 2.7 cm? ? ? MV P 1/2 81 msec MV Mean G 2 mmHg MV VTI 0.30 m Tricuspid Valve and estimated PA pressures: TR Vmax 2.1 m/s TAPSE 1.8 cm TR maxG 17 mmHg Pulmonic Valve: PIEDV 1.4 m/s . This study was interpreted by an [facility] accredited facility. Final Jesika Reeder SOCIAL SERVICE ASSISTANT ECHO ORD from Last 3 Months Advance Directives * Full Code (Latest Code Status on File) Date Activated Date Inactivated Comments 11/18/2006 8:08 AM 11/18/2006 8:44 PM Care Teams Travel Services Professional Relationship Specialty Start Date End Date Lilliam Luna MD [address] [place] [address] PCP - General Internal Medicine 11/07/21 None, Dr Isa Batista Physician Specialty 10/17/21
[2023-11-04] MEDS: LACTATED RINGERS 1000 ML 1,000 ML 100 ML IV (08:35)
[2023-11-04] MEDS: SODIUM CHLORIDE 0.9 % (FLUSH) 10 ML SYRINGE IVF (08:39)
--- NOTE | 2023-11-04 08:50 | P.GSOP_ITS ---
Operative Note Date of procedure: 11/04/23 Pre-op diagnosis: 1. Symptomatic cholelithiasis. Post-op diagnosis: Same Type of Procedure: 1. Laparoscopic cholecystectomy. Indications: 78 year old female was seen in clinic for evaluation of episodes of right upper quadrant pain. Prior to her presentation she was seen in emergency room because of pain in the right upper quadrant that was radiating to her chest. Patient thought that she was having a heart attack. In the emergency room her troponin was normal and no concerning changes were seen for heart attack. Patient was suspected to have a gallbladder attack. Upon her workup her WBC was normal and her liver function tests were normal as well. Her gallbladder ultrasound showed cholelithiasis with normal gallbladder wall and no pericholecystic fluid. Her common bile duct was 4 mm thick. Patient has painful episode eventually subsided. She states that she had similar twinges of pain that happen at random times in the same location. She decreased her fatty food intake. On clinical exam she had tenderness to palpation in the right upper quadrant with positive Brock sign. Given patient's clinical history and her physical exam, laparoscopic cholecystectomy was recommended. The procedure was discussed in detail. The risks associated procedure including infection, bleeding, injury to intra-abdominal organs, injury to the common bile duct, postoperative NM, stroke, and respiratory issues were all discussed with the patient, and she agreed to proceed. Procedure Description: After discussing the risks and benefits of the procedure, the patient signed informed consent.? The operative site was marked and the patient was brought to the operating room and placed on the operating table in supine position.? Care was taken to pad the patient's pressure points.?? The patient was then intubated by anesthesia.?? The operative site was then prepped and draped in the usual sterile fashion.? A time-out was then performed. A 5-mm laparoscopy port was placed in the left upper quadrant guided by a 5-mm laparoscope placed into a translucent trochar.~ Passage through the layers of the abdominal wall was visualized with the laparoscope.~ A pneumoperitoneum was established. A 0-degree 5-mm laparoscope was advanced into the abdomen. The abdomen was briefly surveyed, and no adhesions were noted. A 10-mm port were placed infraumbilically and two more 5 mm ports were placed on the right under direct visualization by laparoscope. The camera was then changed to 10 mm 30- degree scope and placed into the abdomen through the 10 mm port. The left upper quadrant port entrance was examined and no injury to intra-abdominal organs was identified. The gallbladder was identified, the fundus grasped and retracted cephalad. Omental adhesions were noted lateral to the gallbladder and those were taken down with hook cautery. The infundibulum was grasped and retracted laterally, exposing the peritoneum overlying the triangle of Calot. This was then divided and exposed in a blunt fashion and with hook cautery. Common bile duct was not identified but care was taken not to injure it. The cystic duct was clearly identified and bluntly dissected circumferentially. Cystic artery was identified and tissues around it were dissected off. The cystic artery had 2 branches going into the gallbladder. Both of those branches were clipped with 5 mm clips on the patient's side and specimen side and divided. The cystic duct was then doubly ligated with surgical clips on the patient's side and singly clipped on the gallbladder side and divided. The gallbladder was dissected from the liver bed in retrograde fashion using ho okcautery. A prominent vein was noted in the posterior lateral gallbladder fossa and that was clipped with 5 mm clip on the patient's side to prevent bleeding. When the gallbladder was dissected off the liver, it was placed into an Endo-Catch bag and removed through the infraumbilical incision. Surgical site was examined for bleeding. Minimal oozing was noted from the liver near the site of the gallbladder infundibulum and that was controlled with hook cautery. No further bleeding was seen in the surgical field. The fascia of the infraumbilical incision was then closed with 0-0 vicryl using Bertram Shivani needle under direct visualization. Pneumoperitoneum was completely reduced after viewing removal of the trocars under direct vision. The skin was then closed with 4-0 monocryl and steristrips were applied. Instrument, sponge, and needle counts were correct at closure and at the conclusion of the case. The patient was transferred to PACU in stable condition. Findings: No acute inflammation was noted. Minimal scar tissue attaching omentum to the lateral gallbladder but no other adhesions noted in the abdomen. Anesthesia: GETA Surgeon: Lex Saucedo MD Estimated blood loss (mL): 5 Specimen: Gallbladder Condition: stable Disposition: PACU
--- NOTE | 2023-11-04 08:50 | W.PM.H&PU ---
History & Physical Update History & Physical Update H&P Reviewed and patient assessed: No changes noted
[2023-11-04] MEDS: CEFAZOLIN 2 GM INJ IVP (09:05)
[2023-11-04] MEDS: BUPIVACAINE 0.25% 30 ML INJECTION (09:48)
--- NOTE | 2023-11-04 09:58 | W.ANESCHARGE ---
Anesthesia Charges Start Date/Time Anesthesia Start Date: 11/04/23 Anesthesia Start Time: 08:53 Stop Date/Time Anesthesia Stop Date: 11/04/23 Anesthesia Stop Time: 10:22 Summary Extremes of Age - Over 70 or under 1: ACCOUNT REPRESENTATIVE
--- NOTE | 2023-11-04 12:32 | P.IMCN_ITS ---
Date of Consult Patient: Other (Both [facility] and [facility]) Consult date: 11/04/23 Requesting Physician: General Surgery Primary Care Provider: Jesika Reeder APRN, PROTOCOL MANAGER Consult Narrative Narrative: Radha Sotelo is a 78 year old female admitted to the hospital for laparoscopic cholecystectomy. Postoperatively she tells me is she has been having chest heaviness since she a woke from surgery. It is constant. She is having minimal abdominal pain. She reports dyspnea which she thinks is chronic for her. On July 30 this year she had an episode of biliary colic. She was found to have gallstones. She was referred to surgery for laparoscopic cholecystectomy. Initial surgery was planned but then postponed due to preop physical finding bradycardia. She was on metoprolol and this was discontinued. Her bradycardia resolved. She was seen by Cardiology and underwent a nuclear stress test which was unremarkable. She also had an echocardiogram which was unremarkable. She reports chronic dyspnea. She has been diagnosed with COPD though she was never a smoker she did have a childhood exposure to her father secondhand smoke. She may have been diagnosed with asthma when she was younger. She does not have exertional chest pain. She has not had a recent change in her respiratory status with cough or fever. She has had previous history of recurrent strokes. Details of this are somewhat unclear. She has had what she refers to as TIA or minor strokes from which she recovered fairly well. She did have a more significant stroke that caused fairly severe disability. For a period time she was unable to talk and she had right-sided weakness that limited her ability to walk. For a while she was walking with a walker then she was able to use a cane and now she is using no assistive device. She does note however that she has poor balance and feels like she is at risk for falling. Review of Systems Narrative: Patient reports that she has right groin pain with ambulation. This has never been medically evaluated. She reports some balance issues as noted above. No recent illness or injury. She has been able to tolerate eating fairly well sense her biliary colic was identified. She just avoiding fatty foods. [facility] Medical History (Updated 11/04/23 @ 12:50 by Tamir Nunez MD) Chest pain ?R07.9 - Chest pain, unspecified (ICD-10) Injury of meniscus of right knee ?S83.8X1A - Sprain of other specified parts of right knee, initial encounter (ICD-10) Preoperative examination ?Z01.818 - Encounter for other preprocedural examination (ICD-10) History of breast cancer ?Z85.3 - Personal history of malignant neoplasm of breast (ICD-10) Surgical History (Updated 11/04/23 @ 12:42 by Tamir Nunez MD) Status post laparoscopic cholecystectomy ?Z90.49 - Acquired absence of other specified parts of digestive tract (ICD- 10) Postoperative rupture of diaphragm History of bunionectomy ?Z98.890 - Other specified postprocedural states (ICD-10) History of colonoscopy ?Z98.890 - Other specified postprocedural states (ICD-10) History of rhinoplasty ?Z98.890 - Other specified postprocedural states (ICD-10) History of foot surgery ?Z98.890 - Other specified postprocedural states (ICD-10) History of vaginal hysterectomy ?Z90.710 - Acquired absence of both cervix and uterus (ICD-10) History of D&C ?Z98.890 - Other specified postprocedural states (ICD-10) History of tubal ligation ?Z98.51 - Tubal ligation status (ICD-10) Status post repair of paraesophageal diaphragmatic hernia ?Z98.890 - Other specified postprocedural states (ICD-10) ?Z87.19 - Personal history of other diseases of the digestive system (ICD-10) History of lumpectomy of right breast ?Z98.890 - Other specified postprocedural states (ICD-10) Family History Mother Stroke Coronary artery disease Myocardial infarction Kidney disease Father Myocardial infarction Sister Depression Osteoarthritis Heart disease Daughter Myocardial infarction DVT (deep venous thrombosis) Son Myocardial infarction Nicotine dependence Celiac disease Son HIV (human immunodeficiency virus infection) Sister of unknown cause Alcohol abuse Lung disease Blood disease Social History (Updated 11/04/23 @ 12:43 by Tamir Nunez MD) Narrative: . Lives alone in an apartment in [place]. No stairs. 3 children. Retired. Non-smoker. No illicit drug use. Alcohol, rare. Code status is full. Son Freddy is healthcare power of check viewer. Smoking Status: Never smoker Do you use any of these nicotine containing products: None Second hand tobacco smoke exposure: No How often do you have a drink containing alcohol: never How often do you have six or more drinks on one occasion: Never AUDIT-C Alcohol total score: 0 Non-prescribed substance use: denies use Caffeine: Yes Are you using contraception or practicing any form of control: No service: No Meds Home Medications and Allergies Home Medications Medication Instructions Recorded Confirmed Type albuterol sulfate 90 mcg/actuation 2 puff inhalation Q6H PRN 06/21/23 11/04/23 History aerosol inhaler aspirin 81 mg tablet,delayed 81 mg PO DAILY 07/04/23 11/04/23 History release coenzyme Q10 100 mg capsule 100 mg PO DAILY 07/04/23 11/04/23 History (CoQ-10) ginkgo biloba 40 mg tablet 40 mg PO QDAY 07/04/23 11/04/23 History ginkgo biloba leaf extract 120 1 tab PO .COMPLEX 07/04/23 10/29/23 History mg-choline bitartrate 110 mg tablet (Extreme Reach Memory Support) loratadine 10 mg tablet (Allergy 10 mg PO QDAY 07/04/23 11/04/23 History Relief (loratadine)) atorvastatin 40 mg tablet (Lipitor) 40 mg PO DAILY 11/04/23 11/04/23 History enalapril maleate 5 mg tablet 5 mg PO DAILY 11/04/23 11/04/23 History Allergies Allergy/AdvReac Type Severity Reaction Status Date / Time ciprofloxacin Allergy Verified 11/04/23 07:41 grass pollen Allergy Verified 11/04/23 07:41 Exam Narrative: Exam Narrative: She is alert and appears in no distress. Speech is somewhat slow and labored but she is articulate. Oropharynx: Edentulous with dry mucous membranes. Neck is supple without mass or adenopathy. No jugular venous distension. Respirations are clear to auscultation. Fairly good air exchange all lung marcos without wheezing. Cardiovascular: S1, S2, regular rate and rhythm. Abdomen: Bowel sounds active. Abdomen is soft with mild right upper quadrant tenderness consistent with her postoperative status. Incisions are clean and dry. Extremities are somewhat cool to touch with decreased pedal pulses. No edema. Const: Vital Signs, click to edit/add: Vital Signs - 24 hr 11/04/23 08:11 11/04/23 10:17 11/04/23 10:20 Temperature 97.2 F L 97.1 F L Pulse Rate 91 41 L 43 L Respiratory Rate 20 20 20 Blood Pressure 148/85 H 69/34 L 64/36 L Pulse Oximetry 95 91 91 Oxygen Delivery Me thod Room Air Nasal Cannula Non Rebreather Mas k Oxygen Flow Rate 6 10 Fraction of Inspir ed Oxygen 100 100 11/04/23 10:25 11/04/23 10:30 11/04/23 10:33 Temperature Pulse Rate 45 L 48 L 46 L Respiratory Rate 20 18 18 Blood Pressure 59/37 L 73/45 L 72/42 L Pulse Oximetry 93 92 93 Oxygen Delivery Me thod Non Rebreather Mas k Non Rebreather Mas k Non Rebreather Mas k Oxygen Flow Rate 10 10 10 Fraction of Inspir ed Oxygen 100 100 100 11/04/23 10:35 11/04/23 10:38 11/04/23 10:40 Temperature Pulse Rate 52 L 50 L 54 L Respiratory Rate 18 18 18 Blood Pressure 77/46 L 82/44 L 92/51 L Pulse Oximetry 95 94 92 Oxygen Delivery Me thod Non Rebreather Mas k Non Rebreather Mas k Non Rebreather Mas k Oxygen Flow Rate 10 10 10 Fraction of Inspir ed Oxygen 100 100 100 11/04/23 10:45 11/04/23 10:50 11/04/23 10:55 Temperature Pulse Rate 57 L 63 71 Respiratory Rate 18 18 18 Blood Pressure 94/56 L 107/66 109/59 L Pulse Oximetry 91 98 98 Oxygen Delivery Me thod Non Rebreather Mas k Nasal Cannula Room Air Oxygen Flow Rate 10 4 Fraction of Inspir ed Oxygen 100 100 11/04/23 11:01 Temperature 97.0 F L Pulse Rate 72 Respiratory Rate 18 Blood Pressure 123/60 Pulse Oximetry 97 Oxygen Delivery Me thod Room Air Oxygen Flow Rate Fraction of Inspir ed Oxygen Documenting provider has reviewed patient's vital signs: yes Assessment and Plan Assessment and plan (1) Chest pain: Problem comment: November 03 after laparoscopic cholecystectomy reported chest heaviness. Will evaluate for ACS. Had recent stress test and echo which were unremarkable. Possibly reflux. Trial of GI cocktail as well. Status: Inactive (2) Status post laparoscopic cholecystectomy: Problem comment: 11/04/2023, Dr. Lewis, no operative complications. Status: Acute (3) Imbalance: Problem comment: PT and OT to assess chronic imbalance Status: Acute (4) SOB (shortness of breath): Problem comment: Chronic. Possibly due to COPD. Sounds like this was a clinical diagnosis. Unclear if any formal testing. Status: Acute (5) Hypertension: Status: Chronic (6) Right groin pain: Problem comment: Caused by walking. Possibly right hip osteoarthritis. Monitor and outpatient follow-up Status: Acute (7) History of stroke: Problem comment: Apparently has had recurrent stroke and TIA. Neurologic deficit primarily right-sided weakness and speech impairment. Status: Chronic Plan Patient is mid the hospital for evaluation of medical problems noted above, particularly chest pain and dyspnea now postoperative from laparoscopic cholecystectomy. Total Time Spent Total Time Spent: Total time spent today is 60 minutes, 40 minutes in coordination care discussing with patient other providers ongoing evaluation management of chest pain, dyspnea, postoperative care, mobility
[2023-11-04] MEDS: ACETAMINOPHEN 325 MG TABLET 650 MG PO ×2 (12:49→20:06)
[2023-11-04 12:59] LABS: HCO3 VBG 26 mmol/L (21-28); PCO2 VBG 51 mmHG (40-50); pH VBG 7.312 (7.32-7.43)
[2023-11-04 13:55] LABS: Troponin I* < 0.01 ng/mL (0.01-0.04)
[2023-11-04] MEDS: GI COCKTAIL (VISC LIDO/ANTACID) 30 ML PO (14:54)
--- NOTE | 2023-11-04 19:52 | PC.NURSE ---
End of shift [id number] - Pt arrived from PACU at approximately 1110. Pt appeared sedated and was arousable to name and light shaking upon arrival. Pt denied pain, nausea, vomiting. Condition improved throughout shift. Tolerating RA, regular diet, fluids. Pt reported little to no pain in/around surgical site, ice pack on site. Dressing CDI. Pt reported headache rated as 5/10. Given PRN medication with pt reporting improvement. Pt reported feeling heaviness and pain in her chest post-surgery. EKG, labs, tele performed per MD order. Medication given per MD with pt reporting improvement of condition. Pt up to bathroom with standby assistance, able to void during shift. Family at bedside. Pt appears to be resting comfortably at end of shift.
--- NOTE | 2023-11-04 21:33 | PC.NURSE ---
Upon promotion writer meeting this pt, pt asked promotion writer if IV could be removed from L hand. Repairer Kiln Car provided education to patient regarding her wishes to be full code and that IVs are typically left in place in case emergent access is needed to give medications. Patient stated, I don't know what that means when promotion writer reminded her of full code status and then stated, Well, my heart has never stopped before when educated/reminded of full code wishes. Pt stated, I toss and turn during the night and put my arm under my face. The only way I'll leave the IV in is if you immobilize my arm. Repairer Kiln Car encouraged pt to allow IV to remain in place due to wishes to be full code and c/o chest pain since hospitalization. Repairer Kiln Car provided soft arm board and washcloth under L arm and wrapped with Coban wrapping to keep IV intact. Pt reported soft arm board and wrapping felt comfortable after completed.
[2023-11-05 03:00] VITALS: BP 117/67; PULSE 65; RESP 16; TEMP 36.2; O2SAT 93
[2023-11-05] MEDS: DOCUSATE SODIUM 100 MG CAPSULE PO (06:30)
[2023-11-05 06:34] VITALS: BP 145/68; PULSE 65; RESP 16; TEMP 36.1; O2SAT 99
--- NOTE | 2023-11-05 06:53 | PC.NURSE ---
End of shift note [id number]: Pt noted to be alert & oriented x 4 and able to make needs known. IV to L hand intact and SL. Pt transferring/ambulating with SBA using GB for safety. She has been continent of bladder. Pt has been afebrile throughout the shift. Pt noted to be bradycardic when sleeping with pulse of 48 noted on telemetry though pt asymptomatic. MD Felix updated and gave no new orders due to pt being asymptomatic. PT noted to have hx of bradycardia per provider notes. PRN Tylenol administered last evening for c/o headache which was effective upon followup. Surgical incisions to abdomen SOCK LINING EXAMINER with steri strips in place and no drainage observed. Pt agreeable to leaving IV in L hand though did need some education and encouragement from staff. Ice has been provided to abdomen throughout the shift to help with pain control after surgery.
[2023-11-05 07:00] VITALS: PULSE 60; RESP 20
[2023-11-05 07:02] LABS: Troponin I* 0.03 ng/mL (0.01-0.04)
[2023-11-05] MEDS: ACETAMINOPHEN 325 MG TABLET 650 MG PO (07:42)
--- NOTE | 2023-11-05 07:54 | P.DS_ITS ---
DS: Providers Provider Date Seen: 11/05/23 Primary care physician: Jesika Reeder, CHA, MELODY Consults: 11/05/23 07:52 Consult to Occupational Therapy [CONS] Routine Comment: Reason(s) for OT Consult:: Evaluate and Treat Any Restrictions?:: No Restrictions Comment: evaluate if she would benefit from any modifications prior to dc home Consult to Physical Therapy [CONS] Urgent Comment: Reason(s) for PT Consult:: Evaluate Ambulation Any Restrictions?:: No Restrictions Comment: evaluate mobility prior to d/c today Attending Physician on discharge: Lex Saucedo MD DS: Summary Hospital Course Hospital Course: Patient underwent laparoscopic cholecystectomy on 11/04/2023. In the PACU she was found to have hypertension and was treated with antihypertensive medications. That brought down her blood pressure to 70s-80s systolic. Patient was observed in the PACU and her blood pressure was improving slowly with phenylephrine. Decision was made to observe her overnight in the hospital. Patient complained of chest tightness when she was admitted to medical-surgical floor. EKG was obtained that did not show any concerns for cardiac ischemia. Her troponin was normal postoperatively and on the day of discharge. Patient's chest pressure resolved with GI cocktail. Patient complained of minimal abdominal pain and tolerating regular diet. She was evaluated by OT and PT. Time Spent with Patient Time attestation: Total time spent providing and/or coordinating discharge services: Exam Narrative: Exam Narrative: Abdomen is soft, not distended, not tender to palpation. Laparoscopic incisions are covered with Steri is with no surrounding erythema. Neuro: Patient's speech is slightly slurred which is her baseline. Her strength in her upper extremities and lower extremities is equal and symmetric 5/5. Const: Vital Signs, click to edit/add: Vital Signs - 24 hr 11/04/23 08:11 11/04/23 10:17 11/04/23 10:20 Temperature 97.2 F L 97.1 F L Pulse Rate 91 41 L 43 L Pulse Rate [Right Pulse Oximeter] Respiratory Rate 20 20 20 Blood Pressure 148/85 H 69/34 L 64/36 L Blood Pressure [Ri ght Arm] Pulse Oximetry 95 91 91 Oxygen Delivery Me thod Room Air Nasal Cannula Non Rebreather Mas k Oxygen Flow Rate 6 10 Fraction of Inspir ed Oxygen 100 100 11/04/23 10:25 11/04/23 10:30 11/04/23 10:33 Temperature Pulse Rate 45 L 48 L 46 L Pulse Rate [Right Pulse Oximeter] Respiratory Rate 20 18 18 Blood Pressure 59/37 L 73/45 L 72/42 L Blood Pressure [Ri ght Arm] Pulse Oximetry 93 92 93 Oxygen Delivery Me thod Non Rebreather Mas k Non Rebreather Mas k Non Rebreather Mas k Oxygen Flow Rate 10 10 10 Fraction of Inspir ed Oxygen 100 100 100 11/04/23 10:35 11/04/23 10:38 11/04/23 10:40 Temperature Pulse Rate 52 L 50 L 54 L Pulse Rate [Right Pulse Oximeter] Respiratory Rate 18 18 18 Blood Pressure 77/46 L 82/44 L 92/51 L Blood Pressure [Ri ght Arm] Pulse Oximetry 95 94 92 Oxygen Delivery Me thod Non Rebreather Mas k Non Rebreather Mas k Non Rebreather Mas k Oxygen Flow Rate 10 10 10 Fraction of Inspir ed Oxygen 100 100 100 11/04/23 10:45 11/04/23 10:50 11/04/23 10:55 Temperature Pulse Rate 57 L 63 71 Pulse Rate [Right Pulse Oximeter] Respiratory Rate 18 18 18 Blood Pressure 94/56 L 107/66 109/59 L Blood Pressure [Ri ght Arm] Pulse Oximetry 91 98 98 Oxygen Delivery Me thod Non Rebreather Mas k Nasal Cannula Room Air Oxygen Flow Rate 10 4 Fraction of Inspir ed Oxygen 100 100 11/04/23 11:01 11/04/23 11:25 11/04/23 11:40 Temperature 97.0 F L 97.2 F L 97.1 F L Pulse Rate 72 72 72 Pulse Rate [Right Pulse Oximeter] Respiratory Rate 18 16 16 Blood Pressure 123/60 119/58 L 121/55 L Blood Pressure [Ri ght Arm] Pulse Oximetry 97 97 97 Oxygen Delivery Me thod Room Air Room Air Room Air Oxygen Flow Rate Fraction of Inspir ed Oxygen 11/04/23 11:55 11/04/23 12:10 11/04/23 12:40 Temperature 97.8 F 97.8 F Pulse Rate 74 75 81 Pulse Rate [Right Pulse Oximeter] Respiratory Rate 16 16 16 Blood Pressure 117/73 131/66 Blood Pressure [Ri ght Arm] Pulse Oximetry 97 98 96 Oxygen Delivery Me thod Room Air Room Air Room Air Oxygen Flow Rate Fraction of Inspir ed Oxygen 11/04/23 14:17 11/04/23 14:20 11/04/23 15:27 Temperature 97.4 F L 97.1 F L Pulse Rate 74 79 77 Pulse Rate [Right Pulse Oximeter] Respiratory Rate 16 16 Blood Pressure 117/62 132/56 L Blood Pressure [Ri ght Arm] Pulse Oximetry 95 95 Oxygen Delivery Me thod Room Air Room Air Oxygen Flow Rate 95 Fraction of Inspir ed Oxygen 11/04/23 16:20 11/04/23 19:55 11/04/23 23:00 Temperature 97.2 F L 96.9 F L Pulse Rate 87 Pulse Rate [Right Pulse Oximeter] 73 71 Respiratory Rate 16 18 16 Blood Pressure 145/69 H Blood Pressure [Ri ght Arm] 137/64 Pulse Oximetry 97 96 Oxygen Delivery Me thod Room Air Room Air Oxygen Flow Rate Fraction of Inspir ed Oxygen 11/04/23 23:16 11/04/23 23:23 11/05/23 03:00 Temperature 97.1 F L 97.1 F L Pulse Rate 65 Pulse Rate [Right Pulse Oximeter] 71 65 Respiratory Rate 16 16 Blood Pressure Blood Pressure [Ri ght Arm] 129/71 117/67 Pulse Oximetry 92 93 Oxygen Delivery Me thod Room Air Room Air Oxygen Flow Rate Fraction of Inspir ed Oxygen 11/05/23 06:34 Temperature 96.9 F L Pulse Rate Pulse Rate [Right Pulse Oximeter] 65 Respiratory Rate 16 Blood Pressure Blood Pressure [Ri ght Arm] 145/68 H Pulse Oximetry 99 Oxygen Delivery Me thod Room Air Oxygen Flow Rate Fraction of Inspir ed Oxygen DS: Data Data Completed and Pending Labs on day of discharge: Labs from last 24 hours 11/05/23 11/04/23 06:08 12:54 VBG pH 7.312 L VBG pCO2 51 H VBG pO2 38.0 VBG HCO3 26 Troponin I 0.03 < 0.01 L Discharge Plan Discharge Disposition: Home w/ Parent or Adult Discharging Surgeon: Lex Saucedo Follow-Up Appointment: [facility], November 19, 9:[address] Saucedo Prescriptions: New hydrocodone-acetaminophen 5-325 mg tablet 1 tab PO Q6H PRN (Reason: pain) Qty: 13 0RF Continued coenzyme Q10 [CoQ-10] 100 mg capsule 100 mg PO DAILY ginkgo biloba 40 mg tablet 40 mg PO QDAY Rx Instructions: give with meal/snack aspirin 81 mg tablet,delayed release (DR/EC) 81 mg PO DAILY loratadine [Allergy Relief (loratadine)] 10 mg tablet 10 mg PO QDAY [facility] Memory Support 120 mg- 110 mg tablet 1 tab PO .COMPLEX Rx Instructions: 1 tab orally; albuterol sulfate 90 mcg/actuation HFA aerosol inhaler 2 puff inhalation Q6H PRN No Action atorvastatin [Lipitor] 40 mg tablet 40 mg PO DAILY enalapril maleate 5 mg tablet 5 mg PO DAILY Activity Level: No strenuous activity Activity Detail: No strenuous activity or lifting more than 15-20 lbs for 4-6 weeks. Take laxative such as MiraLax or senna daily for the first 7-10 days after surgery to prevent constipation. Discharge Diet: Regular Patient Instructions: Hydrocodone/Acetaminophen (By mouth), General Anesthesia (DC), Laparoscopic Cholecystectomy (DC), Post-Operative Instructions: Laparoscopic Cholecystectomy Additional Instructions: ok to dc after OT and PT Follow-up: Lex Saucedo MD [Staff Physician] - 11/20/23 9:00 am Jesika Reeder APRN, ISSUER [Primary Care Provider] - 11/12/23 9:45 am ([facility] for hospital follow up) Discharge Orders: Discharge Order (Routine); Ordered 11/05/23 Ordered By: Lex Saucedo
[2023-11-05 08:15] VITALS: PULSE 55
[2023-11-05] MEDS: COENZYME Q10 100 MG CAPSULE PO (08:34)
[2023-11-05] MEDS: ATORVASTATIN CALCIUM 40 MG TABLET PO (08:34)
[2023-11-05] MEDS: ASPIRIN 81 MG TABLET EC PO (08:34)
[2023-11-05] MEDS: LORATADINE 10 MG TABLET PO (08:34)
[2023-11-05 10:30] LABS: Troponin I* 0.02 ng/mL (0.01-0.04)
--- NOTE | 2023-11-05 10:30 | PC.NURSE ---
Discharge: patient pleasant and cooperative, A&O. VSS. Pain on abdomen rated 2/10 managed with ice and tylenol. Steri strips dry and intact. Tolerating regular diet, denies nausea. Worked with PT/OT. IV removed, tip intact. Discussed discharge instructions, all questions answered. Discharged to home at 1022.
--- NOTE | 2023-11-05 11:07 | PM.IMPN1 ---
Progress Note: A&P Assessment and plan (1) Status post laparoscopic cholecystectomy: Problem details: 11/04/2023, Dr. Saucedo, no operative complications. Status: Acute (2) Chest pain: Problem details: November 03 after laparoscopic cholecystectomy reported chest heaviness. Will evaluate for ACS. Had recent stress test and echo which were unremarkable. Possibly reflux. GI cocktail resolved her symptoms. No recurrent symptoms. Electrocardiogram normal. Troponins normal. Suspect reflux as a cause of her chest pain Status: Acute (3) SOB (shortness of breath): Problem details: Chronic. Possibly due to COPD. Sounds like this was a clinical diagnosis. Unclear if any formal testing. Formal outpatient evaluation per primary care if continues to be symptomatic. Status: Acute (4) Right groin pain: Problem details: Caused by walking. Possibly right hip osteoarthritis. Monitor and outpatient follow-up. Status: Acute (5) Bradycardia: Problem details: Occurred while taking metoprolol. Resolved after stopping metoprolol July 2023. If symptomatic bradycardia, would recommend outpatient cardiac monitoring Status: Acute Plan Discharge to home per surgery. Outpatient followup to address above issues. Subjective Date Seen: 11/05/23 Interval history: 78-year-old female admitted for laparoscopic cholecystectomy. Procedures performed without complications. After the procedure patient reported some chest pain. Initial troponin was negative. Second troponin was 0.03 and 3rd troponin was 0.02. Her chest pain resolved after a GI cocktail and has not recurred overnight. She reports feeling well and is anxious to go home. She had bradycardia in the 40s while she was sleeping. She has had no symptomatic bradycardia. She had cardiac evaluation prior to surgery including a nuclear stress test and echocardiogram which were unremarkable. She also had bradycardia on her initial evaluation and metoprolol was discontinued. She did receive labetalol after surgery yesterday. Exam Narrative: Exam Narrative: She is alert and appears in no distress. Ambulating without difficulty. Const: Vital Signs, click to edit/add: Vital Signs - 24 hr 11/04/23 11:25 11/04/23 11:40 11/04/23 11:55 Temperature 97.2 F L 97.1 F L Pulse Rate 72 72 74 Pulse Rate [Right Pulse Oximeter] Respiratory Rate 16 16 16 Blood Pressure 119/58 L 121/55 L Blood Pressure [Ri ght Arm] Pulse Oximetry 97 97 97 Oxygen Delivery Me thod Room Air Room Air Room Air Oxygen Flow Rate 11/04/23 12:10 11/04/23 12:40 11/04/23 14:17 Temperature 97.8 F 97.8 F 97.4 F L Pulse Rate 75 81 74 Pulse Rate [Right Pulse Oximeter] Respiratory Rate 16 16 16 Blood Pressure 117/73 131/66 117/62 Blood Pressure [Ri ght Arm] Pulse Oximetry 98 96 95 Oxygen Delivery Me thod Room Air Room Air Room Air Oxygen Flow Rate 95 11/04/23 14:20 11/04/23 15:27 11/04/23 16:20 Temperature 97.1 F L 97.2 F L Pulse Rate 79 77 87 Pulse Rate [Right Pulse Oximeter] Respiratory Rate 16 16 Blood Pressure 132/56 L 145/69 H Blood Pressure [Ri ght Arm] Pulse Oximetry 95 97 Oxygen Delivery Me thod Room Air Room Air Oxygen Flow Rate 11/04/23 19:55 11/04/23 23:00 11/04/23 23:16 Temperature 96.9 F L Pulse Rate 65 Pulse Rate [Right Pulse Oximeter] 73 71 Respiratory Rate 18 16 Blood Pressure Blood Pressure [Ri ght Arm] 137/64 Pulse Oximetry 96 Oxygen Delivery Me thod Room Air Oxygen Flow Rate 11/04/23 23:23 11/05/23 03:00 11/05/23 06:34 Temperature 97.1 F L 97.1 F L 96.9 F L Pulse Rate Pulse Rate [Right Pulse Oximeter] 71 65 65 Respiratory Rate 16 16 16 Blood Pressure Blood Pressure [Ri ght Arm] 129/71 117/67 145/68 H Pulse Oximetry 92 93 99 Oxygen Delivery Me thod Room Air Room Air Room Air Oxygen Flow Rate 11/05/23 07:00 11/05/23 08:15 Temperature Pulse Rate 55 L Pulse Rate [Right Pulse Oximeter] 60 Respiratory Rate 20 Blood Pressure Blood Pressure [Ri ght Arm] Pulse Oximetry Oxygen Delivery Me thod Oxygen Flow Rate Documenting provider has reviewed patient's vital signs: yes Labs Labs: Laboratory Results - last 24 hr 11/04/23 11/05/23 11/05/23 12:54 06:08 09:13 VBG pH 7.312 L VBG pCO2 51 H VBG pO2 38.0 VBG HCO3 26 Troponin I < 0.01 L 0.03 0.02
== END 2023-11-05 10:22 | disposition home or self-care (01) ==
LOC: OR 10:30 → MEDSURG 11:21
PROVIDERS: Family Medicine; PCP Nurse Practitioner Family; Visit Provider Surgery
PROC: 0FT44ZZ Resection of Gallbladder, Percutaneous Endoscopic Approach (ICD-10-PCS; CPT 47562; principal; 2023-11-04 09:00)
DX: K80.20 Calculus of gallbladder without cholecystitis without obstruction (principal); R06.00 Dyspnea, unspecified; R07.9 Chest pain, unspecified; I10 Essential (primary) hypertension; R26.89 Other abnormalities of gait and mobility; R06.02 Shortness of breath; R10.31 Right lower quadrant pain; R00.1 Bradycardia, unspecified
CPT/HCPCS: 47562; 00790; 36415; 82803; 84484; 88304; 93005; 97116; 97161; 97165; 99100; A9270; J0665; J0690; J1100; J2371; J2405; J2704; J3010; J3490; J7120

== ENCOUNTER 2023-12-23 11:37 | Outpatient (CLI) | payer MEDICARE, SELFPAY ==
--- OUTSIDE RECORDS SUMMARY | 2023-12-23 11:49 | XMS_ITS | Clinical Summary ---
Author Organization [facility] Address [place], [place] [address] Care Team Providers Care Real Estate Branch Manager Name Role Phone None, Dr Eddy Luna, Lilliam Richard MD Primary Care Provider [phone] Allergies Active Allergy Reactions Criticality Noted Date Comments Ciprofloxacin Nausea Only Low 02/27/2016 Grass Pollen *Unknown Unknown 10/17/2021 Medications Medication Sig Dispensed Refills Start Date End Date Status ALBUTEROL 90 MCG/ACTUATION AEROSOL INHALER inhale 1 puff by inhalation route every 4-6 hours as needed 0 Active nebulizer accessories kitIndications:Senior Financial Consultant trisha obstructive pulmonary disease, unspecified COPD [...] Encounters Date Type Department Care Team Description 11/04/2023 Lab Requisition [facility] [phone] Lex Saucedo MD 10/16/[address] [place] [address] Дмитрий Felix MD Results (Stress test and cardiology clearance for GB surgery) 10/15/2023 9:00 AM CDT Ancillary Procedure [facility] [address] [place] [address] 10/04/2023 11:00 AM CDT Office Visit [facility] [address] [place] [address] Дмитрий Felix MD Consult from Last 3 Months Immunizations Name Administration Dates Next Due COVID-19 vaccine (Clarient 30mcg/0.3mL) 12YO+ ARELY-SUCROSE JEFFERY KIRBY 04/02/2021,10/02/2020,09/09/2020 Influenza, [...] Medicare Wellness for age 65+ 08/23/2023 08/22/2022 COVID-19 vaccine series ( season) 2023 05/01/2023, 04/10/2022, 04/02/2021, Additional history exists BMI (ht and wt on same day) for age 18+ 11/14/2023 11/13/2022, 08/22/2022, 12/13/2021, Additional history exists Influenza for age 65+ 03/08/2024 04/10/2022, 021 Tetanus booster 12/27/2030 12/27/2020, 12/22/2015 Tdap Completed 12/27/2020, 12/22/2015 Pneumococcal series for age 65+ Completed 3, 12/22/2015 Medical Devices Implanted Type Area Pediatric Dental Hygienist Device Identifier Shelf Expiration Date Model / Serial / Lot Pin Cortical 2.4mm Pretreat - [id number] Implanted:Qty: 2 on 11/18/2006 at [facility] Right: Foot Musculoskeletal Transplant [id number] / [id number] / Description:LOGGED AND YENIFER D Screw Frs [id number] - [id number] Implanted:Qty: 1 on 11/18/2006 at [facility] Right: Foot DEPUY [id number]# / / Screw Ti Cortex [id number] Self-Tapping - [id number] Implanted:Qty: 1 on 11/18/2006 at [facility] Right: Foot DepTrelligence [id number] # / / Screw Ti Cortex [id number] Self-Tapping - [id number] Implanted:Qty: 1 on 11/18/2006 at [facility] Right: Foot DepTrelligence [id number] # / / Procedures Procedure Name Priority Date/Time Associated Diagnosis Comments LAB TRACKING EVENT Routine 11/04/2023 9: 43 AM CDT PATH TISSUE EXAM Routine 11/04/2023 9:43 AM CDT NM CARDIAC MPI STRESS TEST Routine 10/15/2023 11:38 AM CDT Personal history of transient ischemic attack Chest pain from Last 3 Months Results * LAB TRACKING EVENT (11/04/2023 9:43 AM CDT) Other (Other) Client Collect / Unknown 11/04/2023 9:43 AM CDT 11/04/2023 9:45 PM CDT Lex Saucedo MD LAB BILL ONLY [facility] [address] [place] [id number], * PATH TISSUE EXAM (11/04/2023 9:43 AM CDT) Case Report Pathology Report ?Case: [id number] ? Authorizing Provider: ??Lex Saucedo MD ?Collected: ? 11/04/2023 0943 ? Ordering Location: ? [facility] ?Received: ?11/05/2023 06 ? Pathologist: ? Suman Solorzano ? IV, MD ? Specimen: ?Gallbladder ? 11/06/2023 3:08 PM CDT [facility] Final Diagnosis A) GALLBLADDER, CHOLECYSTECTOMY: 1. Chronic cholecystitis 2. Cholelithiasis 3. Negative for dysplasia and malignancy 11/06/2023 3:08 PM CDT [facility] Clinical Information Ms. Thomas is a 78 y.o. who undergoes cholecystectomy. 11/06/2023 3:08 PM CDT [facility] Gross Description A) Received in formalin, labeled with the patient's name and gallbladder, is an 8.9 x 2.7 x 2.4 cm intact cholecystectomy specimen characterized by a blue-green smooth unremarkable serosal surface with a small amount of adherent yellow lobulated adipose tissue, as well as a blue-green shaggy focally cauterized hepatic surface. ??The cystic duct (1.9 cm long and 0.3 cm in diameter) appears patent, and no distinct cystic duct lymph node is identified. ??Opening the specimen reveals copious amounts of green viscous bile, several black smooth faceted calculi (0.1 to 0.5 cm), dark green velvety mucosa, membranous morales averaging 0.2 cm in thickness, and no discrete solid mass lesions, perforations, or other gross abnormalities. Hot Sealing Machine Operator sections including the cystic duct margin (en face, inked blue) and wire rope sales representative gallbladder wall are submitted in 1 cassette. ADW 11/05/2023 11/06/2023 3:08 PM CDT [facility] Microscopic Description The final diagnosis is based on microscopic examination of appropriate sections of all specimens. 11/06/2023 3:08 PM CDT [facility] Additional Information Interpreted at [facility] - [address], [place] [address] 11/06/2023 3:08 PM CDT [facility] Other SPECIMEN FROM GALLBLADDER / Unknown 11/04/2023 9:43 AM CDT 11/05/2023 6:27 AM CDT Lex Saucedo MD PATHOLOGY/CYTOLOGY [facility] [address] [place] [address], [place] * NM CARDIAC MPI STRESS TEST (10/15/2023 11:38 AM CDT) Anatomical Region Laterality Modality HEART Ultrasound 10/15/2023 8:43 AM CDT Narrative 10/15/2023 4:28 PM CDT ? Toll -free: [phone] ?[employer] ?MYOCARDIAL PERFUSION IMAGING REPORT REST/STRESS SINGLE ISOTOPE GATED SPECT IMAGING. Patient Name: ?? RADHA THOMAS ? Gender: ? F ? Height: ? 66 in Accession #: ?[id number] ?Weight: ? 148 lb Study Date: ? 10/15/2023 8:43:55 AM ?BSA: ?1.76 m? ? ? : ?1945 78 years ?BMI: ?23.89 kg/m? ? ? Ord. Prov.: ? ДМИТРИЙ FELIX ?Monitoring Prov.: Ari Junior Performing Site [facility] Clinical History: ? Chest pain, [...] Amari Rosas MD - 10/16/2023 Toll -free: [phone] [employer] MYOCARDIAL PERFUSION IMAGING REPORT REST/STRESS SINGLE ISOTOPE GATED SPECT IMAGING. Patient Name: RADHA THOMAS Gender: Wayne Height: 66 in Weight: 148 lb Study Date: 10/15/2023 8:43:55 AM BSA: 1.76 m? ? ? : 1945 78 years BMI: 23.89kg/m? ? ? Ord. Prov.: ДМИТРИЙ FELIX Monitoring Prov.: Ari Junior [facility] Clinical History: Chest pain, dyspnea and fatigue. [...] was 146 mmHg/81 mmHg; peak blood pressure [id number] mmHg/88 mmHg. - Patient did not develop [...] PM. Final (Updated) Дмитрий Felix MD NM from Last 3 Months Advance Directives * Full Code (Latest Code Status on File) Date Activated Date Inactivated Comments 11/18/2006 8:08 AM 11/18/2006 8:44 PM Care Teams Real Estate Branch Manager Relationship Specialty Start Date End Date Lilliam Luna MD [address] [place] [address] PCP - General Internal Medicine 11/07/21 None, Dr Isa Batista Physician Specialty 10/17/21
== END 2023-12-23 11:38 | disposition home or self-care (01) ==
PROVIDERS: PCP Nurse Practitioner Family; Visit Provider Nurse Practitioner Family
DX: R19.7 Diarrhea, unspecified (principal); E53.8 Deficiency of other specified B group vitamins; R53.83 Other fatigue; E78.00 Pure hypercholesterolemia, unspecified; I10 Essential (primary) hypertension; R10.11 Right upper quadrant pain
CPT/HCPCS: 80053; 82150; 82607; 83690; 85025

== ENCOUNTER 2023-12-31 11:55 | Outpatient (CLI) | payer MEDICARE, SELFPAY ==
--- OUTSIDE RECORDS SUMMARY | 2024-01-03 07:14 | XMS_ITS | Clinical Summary ---
Author Organization [employer] [facility] Address [place], [place] [address] Care Team Providers Care Faculty Research Physician Name Role Phone None, Dr Eddy Luna, Lilliam Richard MD Primary Care Provider [phone] Allergies Active Allergy Reactions Criticality Noted Date Comments Ciprofloxacin Nausea Only Low 02/27/2016 Grass Pollen *Unknown Unknown 10/17/2021 Medications Medication Sig Dispensed Refills Start Date End Date Status ALBUTEROL 90 MCG/ACTUATION AEROSOL INHALER inhale 1 puff by inhalation route every 4-6 hours as needed 0 Active nebulizer accessories kitIndications:Retail Loss Prevention Investigator trisha obstructive pulmonary disease, unspecified COPD type [...] Department Care Team Description 11/04/2023 Lab Requisition [facility] [phone] Lex Saucedo MD 10/16/[address] [place] [address] Дмитрий Felix MD Results (Stress test and cardiology clearance for GB surgery) 10/15/2023 9:00 AM CDT Ancillary Procedure [facility] [address] [place] [address] 10/04/2023 11:00 AM CDT Office Visit [facility] [address] [place] [address] Дмитрий Felix MD Consult from Last 3 Months Immunizations Name Administration Dates Next Due COVID-19 vaccine (Victorious 30mcg/0.3mL) 12YO+ ARELY-SUCROSE JEFFERY KIRBY 04/02/2021,10/02/2020,09/09/2020 Influenza, [...] 3, 12/22/2015 Medical Devices Implanted Type Area Pharmacy Consultant Device Identifier Shelf Expiration Date Model / Serial / Lot Pin Cortical 2.4mm Pretreat - [id number] Implanted:Qty: 2 on 11/18/2006 at [facility] Right: Foot Musculoskeletal Transplant [id number] / [id number] / Description:LOGGED AND YENIFER D Screw Frs [id number] - [id number] Implanted:Qty: 1 on 11/18/2006 at [facility] Right: Foot DEPUY [id number]# / / Screw Ti Cortex [id number] Self-Tapping - [id number] Implanted:Qty: 1 on 11/18/2006 at [facility] Right: Foot DepTenderTree [id number] # / / Screw Ti Cortex [id number] Self-Tapping - [id number] Implanted:Qty: 1 on 11/18/2006 at [facility] Right: Foot DepTenderTree [id number] # / / Procedures Procedure Name [...] CDT Lex Saucedo MD LAB BILL ONLY [facility] [address] [place] [id number], * PATH TISSUE EXAM (11/04/2023 9:43 AM CDT) Case Report Pathology Report ?Case: [id number] ? Authorizing Provider: ??Lex Saucedo MD ?Collected: ? 11/04/2023 0943 ? Ordering Location: ? [facility] ?Received: ?11/05/2023 06 ? Pathologist: ? Suman Solorzano ? IV, MD ? Specimen: ?Gallbladder ? 11/06/2023 3:08 PM CDT [facility] Final Diagnosis A) GALLBLADDER, CHOLECYSTECTOMY: 1. Chronic cholecystitis 2. Cholelithiasis 3. Negative for dysplasia and malignancy 11/06/2023 3:08 PM CDT [facility] Clinical Information Ms. Thomas is a 78 y.o. who undergoes cholecystectomy. 11/06/2023 3:08 PM CDT [facility] Gross Description A) Received in formalin, [...] mass lesions, perforations, or other gross abnormalities. Mat Puncher sections including the cystic duct margin (en face, inked blue) and pest control service representative gallbladder wall are submitted in 1 cassette. ADW 11/05/2023 11/06/2023 3:08 PM CDT [facility] Microscopic Description The final diagnosis is based on microscopic examination of appropriate sections of all specimens. 11/06/2023 3:08 PM CDT [facility] Additional Information Interpreted at [facility] - [address], [place] [address] 11/06/2023 3:08 PM CDT [facility] Other SPECIMEN FROM GALLBLADDER / Unknown 11/04/2023 9:43 AM CDT 11/05/2023 6:27 AM CDT Lex Saucedo MD PATHOLOGY/CYTOLOGY [facility] [address] [place] [address], [place] * NM CARDIAC MPI STRESS TEST (10/15/2023 11:38 AM CDT) Anatomical Region Laterality Modality HEART Ultrasound 10/15/2023 8:43 AM CDT Narrative 10/15/2023 4:28 PM CDT ? Toll -free: [phone] ?[employer] ?MYOCARDIAL PERFUSION IMAGING REPORT REST/STRESS SINGLE ISOTOPE GATED SPECT IMAGING. Patient Name: ?? RADHA THOMAS ? Gender: ? F ? Height: ? 66 in Accession #: ?[id number] ?Weight: ? 148 lb Study Date: ? 10/15/2023 8:43:55 AM ?BSA: ?1.76 m? ? ? : ?1945 78 years ?BMI: ?23.89 kg/m? ? ? Ord. Prov.: ? ДМИТРИЙ FELIX ?Monitoring Prov.: Ari Junior Performing Site [facility] Clinical History: ? Chest pain, dyspnea and [...] Amari Rosas MD - 10/16/2023 Toll -free: [phone] [employer] MYOCARDIAL PERFUSION IMAGING REPORT REST/STRESS SINGLE ISOTOPE GATED SPECT IMAGING. Patient Name: RADHA THOMAS Gender: Wayne Height: 66 in Weight: 148 lb Study Date: 10/15/2023 8:43:55 AM BSA: 1.76 m? ? ? : 1945 78 years BMI: 23.89kg/m? ? ? Ord. Prov.: ДМИТРИЙ FELIX Monitoring Prov.: Ari Junior [facility] Clinical History: Chest pain, dyspnea and fatigue. [...] was 146 mmHg/81 mmHg; peak blood pressure [id number] mmHg/88 mmHg. - Patient did not develop [...] 8:08 AM 11/18/2006 8:44 PM Care Teams Faculty Research Physician Relationship Specialty Start Date End Date Lilliam Luna MD [address] [place] [address] PCP - General Internal Medicine 11/07/21 None, Dr Isa Batista Physician Specialty 10/17/21
== END 2023-12-31 11:56 | disposition home or self-care (01) ==
LOC: NFLDREF 01-03 07:10
PROVIDERS: PCP Nurse Practitioner Family; Referring Provider Nurse Practitioner Family; Visit Provider Nurse Practitioner Family
DX: R19.7 Diarrhea, unspecified (principal); R53.83 Other fatigue; R10.11 Right upper quadrant pain
CPT/HCPCS: 87338

== ENCOUNTER 2024-02-17 12:29 | Emergency (ER) | payer MEDICARE, SELFPAY ==
[2024-02-17 12:45] VITALS: BP 152/80; PULSE 57; RESP 16; TEMP 36.4; O2SAT 98; BMI 24.6
--- NOTE | 2024-02-17 13:15 | ED_ITS ---
HPI - General Adult General Date Seen: 02/17/24 Chief complaint: Dizziness/Vertigo Stated complaint: dizziness, nausea Time Seen by Provider: 02/17/24 12:56 History of Present Illness HPI narrative: This is a pleasant 79-year-old female presenting to the ER today for evaluation of dizziness and nauseousness ongoing for about 2 days. Symptoms are better when she lies still but if she moves she feels dizzy nauseous. No vomiting. She has no recent falls. No head injury. She has does have history of 4 previous strokes but she is not on any anticoagulation. She has never had symptoms of like this with previous strokes. She describes episodes where she gets spinning and nauseous whenever she moves her head in any direction. They tend to get better if she holds still when sits up. She has been very nauseous from time to time but no vomiting. No headache. No double vision or blurry vision. No abdominal pain. No back pain. No palpitations or chest pain. She notes that she tends to have a slow heart rate recalls that at least once she has had a surgery canceled because of her low resting heart rate. Related Data Home Medications ?Medication ?Instructions ?Recorded ?Confirmed albuterol sulfate 90 mcg/actuation 2 puff inhalation Q6H PRN 06/21/23 02/17/24 aerosol inhaler aspirin 81 mg tablet,delayed 81 mg PO DAILY 07/04/23 02/17/24 release coenzyme Q10 100 mg capsule 100 mg PO DAILY 07/04/23 02/17/24 (CoQ-10) ginkgo biloba leaf extract 120 1 tab PO .COMPLEX 07/04/23 02/17/24 mg-choline bitartrate 110 mg tablet ([facility] Memory Support) loratadine 10 mg tablet (Allergy 10 mg PO QDAY 07/04/23 02/17/24 Relief (loratadine)) multivit with minerals-iron 18 1 tab PO .QD 12/23/23 02/17/24 mg-folic ac 400 mcg-vit K 25 mcg tablet (One Daily Women's) Previous Rx's ?Medication ?Instructions ?Recorded atorvastatin 40 mg tablet (Lipitor) 40 mg PO DAILY #100 tabs 12/17/23 enalapril maleate 5 mg tablet 5 mg PO DAILY #100 tabs 12/17/23 cyanocobalamin (vitamin B-12) 1,000 mcg PO QDAY #100 tabs 12/27/23 1,000 mcg tablet (Vitamin B-12) meclizine 25 mg tablet 25 mg PO TID PRN dizziness #15 tabs 02/17/24 meclizine 25 mg tablet 25 mg PO TID PRN dizziness #15 tabs 02/17/24 ondansetron 4 mg disintegrating 4 mg PO Q8H PRN nausea and 02/17/24 tablet vomiting #10 tabs Allergies Allergy/AdvReac Type Severity Reaction Status Date / Time ciprofloxacin Allergy Verified 02/17/24 12:51 grass pollen Allergy Verified 02/17/24 12:51 PFSH PFS Medical History (Updated 02/17/24 @ 16:01 by Amari Jones MD) Chest pain ?R07.9 - Chest pain, unspecified (ICD-10) Injury of meniscus of right knee ?S83.8X1A - Sprain of other specified parts of right knee, initial encounter (ICD-10) History of breast cancer ?Z85.3 - Personal history of malignant neoplasm of breast (ICD-10) Surgical History Status post laparoscopic cholecystectomy ?Z90.49 - Acquired absence of other specified parts of digestive tract (ICD- 10) Postoperative rupture of diaphragm History of bunionectomy ?Z98.890 - Other specified postprocedural states (ICD-10) History of colonoscopy ?Z98.890 - Other specified postprocedural states (ICD-10) History of rhinoplasty ?Z98.890 - Other specified postprocedural states (ICD-10) History of foot surgery ?Z98.890 - Other specified postprocedural states (ICD-10) History of vaginal hysterectomy ?Z90.710 - Acquired absence of both cervix and uterus (ICD-10) History of D&C ?Z98.890 - Other specified postprocedural states (ICD-10) History of tubal ligation ?Z98.51 - Tubal ligation status (ICD-10) Status post repair of paraesophageal diaphragmatic hernia ?Z98.890 - Other specified postprocedural states (ICD-10) ?Z87.19 - Personal history of other diseases of the digestive system (ICD-10) History of lumpectomy of right breast ?Z98.890 - Other specified postprocedural states (ICD-10) Family History Mother Stroke Coronary artery disease Myocardial infarction Kidney disease Father Myocardial infarction Sister Depression Osteoarthritis Heart disease Daughter Myocardial infarction DVT (deep venous thrombosis) Son Myocardial infarction Nicotine dependence Celiac disease Son HIV (human immunodeficiency virus infection) Sister of unknown cause Alcohol abuse Lung disease Blood disease Social History Narrative: . Lives alone in an apartment in [place]. No stairs. 3 children. Retired. Non-smoker. No illicit drug use. Alcohol, rare. Code status is full. Son Freddy is healthcare power of managing attorney. Smoking Status: Never smoker Do you use any of these nicotine containing products: None Second hand tobacco smoke exposure: No How often do you have a drink containing alcohol: never How often do you have six or more drinks on one occasion: Never AUDIT-C Alcohol total score: 0 Non-prescribed substance use: denies use Caffeine: Yes Are you using contraception or practicing any form of control: No service: No Exam Narrative: Exam Narrative: Constitutional: Appears well-developed and well-nourished. Alert. Conversant. Non toxic. HENT: Head: Atraumatic. Left ear: Some cerumen in the canal. Removed with lighted ear curette. After this the canal was clear. TM is normal. Mastoid normal. Right ear: Mastoid, pinna, canal, TM are normal. Nose: Nose normal. Mouth/Throat: Oral mucosa is clear and moist. no trismus. Pharynx normal. Tonsils symmetric. No tonsillar enlargement, erythema, or exudate. Eyes: Conjunctivae normal. EOM normal. Pupils equal, round, and reactive to light. No scleral icterus. Initially no nystagmus. After I have her move her head and trigger symptoms on reexamination she does have horizontal nystagmus. Neck: Normal range of motion. Neck supple. No tracheal deviation present. Cardiovascular: Normal rate, regular rhythm. No gallop. No friction rub. No murmur heard. Symmetric radial artery pulses Pulmonary/Chest: Effort normal. No stridor. No respiratory distress. No wheezes. No rales. No rhonchi . No tenderness. Abdominal: Soft. Bowel sounds normal. No distension. No mass. No tenderness. No rebound. No guarding. Musculoskeletal: RUE: Normal range of motion. No tenderness. No deformity LUE: Normal range of motion. No tenderness. No deformity RLE: Normal range of motion. No edema. No tenderness. No deformity LLE: Normal range of motion. No edema. No tenderness. No deformity Neurological: Mental status normal. Attention normal. Alert and oriented x3. GCS 15. Memory normal. Speech fluent. 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 She still not satisfied with the clarity of her speech but I think her speech is very clear. Cognition normal. Cranial Nerves intact II-XII except I did not formally test gag or visual acuity. EOMI. Palate elevates symmetrically and tongue protrudes in the midline. Strength: 5/5 trapezius on the right and left 5/5 deltoid on the right and left 5/5 biceps on the right and left 5/5 triceps on the right and left 5/5 film technician on the right and left 5/5 thumb opposition on the right and le ft 5/5 finger abduction on the right and le ft 5/5 hip flexors (L3) on the right and le ft 5/5 quadriceps (L4) on the right and lef t 5/5 tibialis anterior on the right and l eft 5/5 EHL (L5) on the right and left 5/5 gastrocnemius (S1) on the right and left 5/5 hamstring on the right and left Sensation intact to light touch in both upper extremities (C4-T1) Sensation intact to light touch in Both lower extremities (L4-S1). Finger to nose and coordination normal. Gait not assessed due to dizziness when she moves her head. She is asymptomatic while sitting at rest with her head resting on the pillow. She gets dizziness and vertigo with turning her head to the right or to the left. We attempted a Marshall-Hallpike maneuver but this triggered symptoms. Vertigo seems to persist when she is laying flat and having her head turned to the side. Vertigo is fatigable and gets better when she sits up straight in bed. She has nystagmus during episodes of vertigo. The vertigo is fatigable and she feels asymptomatic when sitting up in her head resting on the pillow, looking straight forward. She has vertigo triggered by any movement. I suspect this is a peripheral vertigo but not a classic BPPV since she does not have a positive unilateral Marshall-Hallpike Skin: Skin is warm and dry. No rash noted. No pallor. Normal capillary refill. Psychiatric: Normal mood. Normal affect. Const: Vital Signs, click to edit/add: Vital Signs - 24 hr 02/17/24 12:45 Temperature 97.5 F L Pulse Rate [Pulse Oximeter] 57 L Respiratory Rate 16 Blood Pressure [Ri ght Upper Arm] 152/80 H Pulse Oximetry 98 Oxygen Delivery Me thod Room Air Course Course ED Course: Recheck-patient says she is feeling much better. Nausea resolved. Dizziness is completely resolved however testing. She says it is ?almost gone? when she sits up for ambulation trial. She is able to ambulate under her own power and own balance in the hallway all the way down to the bathroom and back. Patient's si ster is now at nurse bedside. Discussed the scenario with the patient and her sister. We could consider hospitalization for vertigo symptoms not completely resolved. She does live alone and is at risk for falls at home. Sister would support hospitalization. However the patient adamantly wants to go home. She is feeling much better and prefers to discharge. Vital Signs Vital signs: Initial Vital Signs Temperature 97.5 F L 02/17/24 12:45 Temperature Source Temporal Artery Scan 02/17/24 12:45 Pulse Rate 57 L 02/17/24 12:45 Pulse Rhythm Regular 02/17/24 12:45 Pulse Strength 3+ Normal 02/17/24 12:45 Respiratory Rate 16 02/17/24 12:45 Blood Pressure 152/80 H 02/17/24 12:45 Blood Pressure Mean 104 02/17/24 12:45 Blood Pressure Position Sitting 02/17/24 12:45 Pulse Oximetry 98 02/17/24 12:45 Oxygen Delivery Method Room Air 02/17/24 12:45 Vital Signs Temperature 97.5 F L 02/17/24 12:45 Pulse Rate 57 L 02/17/24 12:45 Respiratory Rate 16 02/17/24 12:45 Blood Pressure 152/80 H 02/17/24 12:45 Pulse Oximetry 98 08/12/24 12:45 Oxygen Delivery Method Room Air 02/17/24 12:45 Temperature 97.5 F L 02/17/24 12:45 Pulse Rate 57 L 02/17/24 12:45 Respiratory Rate 16 02/17/24 12:45 Blood Pressure 152/80 H 02/17/24 12:45 Pulse Oximetry 98 02/17/24 12:45 Oxygen Delivery Method Room Air 02/17/24 12:45 Medications Administered Medications: Discontinued Medications Generic Name Dose Route Start Last Admin Trade Name Freq PRN Reason Stop Dose Admin Sodium Chloride 1,000 mls @ 1,000 mls/hr 02/17/24 13:45 02/17/24 15:11 0.9 % Sodium Chloride 1000 Ml IV 02/17/24 14:44 Infused .Q1H [facility] Meclizine HCl 25 mg 02/17/24 13:42 02/17/24 14:12 Meclizine Hcl 25 Mg Tablet PO 02/17/24 13:43 25 mg ONCE ONE Administration Ondansetron HCl 4 mg 02/17/24 13:42 02/17/24 14:13 Ondansetron 2 Mg/Ml Inj IVP 02/17/24 13:43 4 mg ONCE ONE Administration Medical Decision Making MDM Narrative Medical decision making narrative: This patient presents for evaluation of dizziness c/w vertigo. The differential diagnosis of vertigo is broad and includes common etiologies such as menieres disease, labyrinthitis, benign positional vertigo, otitis media, etc. More serious etiologies considered include central etiologies such as tumor, intracerebral bleed, dissection, ischemic cerebral vascular accident. Although she has a history of 4 previous strokes, the provided history of present illness and physical exam including detailed neurologic exam, and workup in the emergency room suggests a benign cause of vertigo today. Patient feels improved after interventions noted above. Further outpatient management is indicated with vertigo medications. No indication for advanced imaging at this point (CT/MRI) as there are no definite signs of a central and concerning etiology for the vertigo. Vertigo precautions given for home. Incidentally she did have cerumen in her left ear canal which I removed. No evidence for otitis media or otitis externa. Lab Data Labs: Lab Results 02/17/24 02/17/24 Range/Units 13:02 14:10 WBC 4.69 (4.50-11.00) K/uL RBC 4.20 (4.00-5.20) m/uL Hgb 12.5 (12.0-16.0) gm/dL Hct 38.3 (33.0-51.0) % MCV 91 (80-100) fL MCH 30 (26-34) pg MCHC 33 (32-36) gm/dL RDW Coeff of Eve 12.8 (11.5-15.5) % Plt Count 233 (140-440) K/uL Neut % (Auto) 53.8 (42.0-72.0) % Lymph % (Auto) 30.9 (20-44) % Granite % (Auto) 9.6 (0.0-11.0) % Eos % (Auto) 4.7 (0.0-7.0) % Baso % (Auto) 0.4 (0.0-3.0) % Neut # (Auto) 2.52 (1.7-7.0) K/uL Lymph # (Auto) 1.45 (0.90-2.90) K/uL Granite # (Auto) 0.50 (0.00-0.90) K/UL Eos # (Auto) 0.22 (0.00-0.50) K/uL Baso # (Auto) 0.02 (0.00-0.30) K/uL Abs Immat Gran (auto) 0.03 (0.00-0.30) K/uL Imm/Tot Granulo (auto) 0.6 % Sodium 141 (135-149) mmol/L Potassium 3.8 (3.6-5.1) mmol/L Chloride 104 (96-114) mmol/L Carbon Dioxide 29 (20-32) mmol/L Anion Gap 8 (7-15) mEq/L BUN 7 (7-30) mg/dL Creatinine 0.6 (0.5-1.5) mg/dL Estimated Creat Clear 36.50 Estimated GFR 90 ml/min Glucose 109 (60-115) mg/dL Calcium 10.1 (8.4-10.6) mg/dL Urine Color Yellow (Yellow) Urine Appearance Clear (Clear) Urine pH 7.0 (5.0-8.5) Ur Specific [place] 1.010 (1.000-1.030) Urine Protein Negative (Negative) Urine Glucose (UA) Negative (Negative) Urine Ketones Negative (Negative) Urine Blood Negative (Negative) Urine Nitrite Negative (Negative) Urine Bilirubin Negative (Negative) Urine Urobilinogen 0.2 (0.2-1.0) Ur Leukocyte Esterase Negative (Negative) Urine RBC 0-2 (0-2) Urine WBC 0-2 (0-5) Ur Squamous Epith Cells None (None-Few) Urine Bacteria None (None) Discharge Plan Discharge Clinical Impression: Vertigo Patient Disposition: Home, Self-Care Condition: Stable Instructions: Vertigo (DC) Additional Instructions: As we discussed, you can use the Antivert medication as needed to help with vertigo and Zofran nausea medication as needed. Monitor your symptoms carefully and if you have worsening bouts of vertigo or any other concerning symptoms, trouble walking or unsteadiness, or any problems, return to the ER immediately to be rechecked. If you are not completely improved, please recheck with your regular doctor within 3-4 days (or come back to the ER for a recheck). Prescriptions: New ondansetron 4 mg tablet,disintegrating 4 mg PO Q8H PRN (Reason: nausea and vomiting) Qty: 10 0RF meclizine 25 mg tablet 25 mg PO TID PRN (Reason: dizziness) Qty: 15 0RF meclizine 25 mg tablet 25 mg PO TID PRN (Reason: dizziness) Qty: 15 0RF No Action coenzyme Q10 [CoQ-10] 100 mg capsule 100 mg PO DAILY aspirin 81 mg tablet,delayed release (DR/EC) 81 mg PO DAILY loratadine [Allergy Relief (loratadine)] 10 mg tablet 10 mg PO QDAY [facility] Memory Support 120 mg- 110 mg tablet 1 tab PO .COMPLEX Rx Instructions: 1 tab orally; One Daily Women's 18 mg iron-400 mcg-25 mcg tablet 1 tab PO .QD albuterol sulfate 90 mcg/actuation HFA aerosol inhaler 2 puff inhalation Q6H PRN atorvastatin [Lipitor] 40 mg tablet 40 mg PO DAILY Qty: 100 3RF enalapril maleate 5 mg tablet 5 mg PO DAILY Qty: 100 3RF cyanocobalamin (vitamin B-12) [Vitamin B-12] 1,000 mcg tablet 1,000 mcg PO QDAY Qty: 100 3RF Follow Up/Referrals: Jesika Reeder APRN, CODING MACHINE OPERATOR [Primary Care Provider] - Stand Alone Forms: [facility] Info Instructions
[2024-02-17 13:29] LABS: Appearance Urine Clear (Clear); Bilirubin Urine Negative (Negative); Blood Urine Negative (Negative); Color Urine Yellow (Yellow); Glucose Urine Negative (Negative); Ketones Urine Negative (Negative); Leukocyte Esterase Urine Negative (Negative); Nitrite Urine Negative (Negative); Protein Urine Negative (Negative); Urobilinogen Urine 0.2 (0.2-1.0)
--- OUTSIDE RECORDS SUMMARY | 2024-02-17 13:58 | XMS_ITS | Clinical Summary ---
Author Organization [facility] [employer] [facility] Address [place], [place] [address] Care Team Providers Care Bed Bug Exterminator Name Role Phone None, Dr Eddy Luna, Lilliam Richard MD Primary Care Provider [phone] Allergies Active Allergy Reactions Criticality Noted Date Comments Ciprofloxacin Nausea Only Low 02/27/2016 Grass Pollen *Unknown Unknown 10/17/2021 Medications Medication Sig Dispensed Refills Start Date End Date Status ALBUTEROL 90 MCG/ACTUATION AEROSOL INHALER inhale 1 puff by inhalation route every 4-6 hours as needed 0 Active nebulizer accessories kitIndications:[place] trisha obstructive pulmonary disease, unspecified COPD type [...] Date Essential hypertension History of stroke Overview: 2020, with significant loss of speech Hypercholesterolemia Immunizations Name Administration Dates Next Due COVID-19 vaccine ([employer] 30mcg/0.3mL) 12YO+ ARELY-SUCROSE PF, MDV 04/02/2021,10/02/2020,09/09/2020 Influenza, High-dose Quadriv alent Inactivated 04/10/2022,04/02/2021 [...] 12/22/2015 Pneumococcal series for age 65+ Completed , 12/22/2015 Medical Devices Implanted Type Area Heel Seat Fitter Machine Device Identifier Shelf Expiration Date Model / Serial / Lot Pin Cortical 2.4mm Pretreat - [id number] Implanted:Qty: 2 on 11/18/2006 at [facility] Right: Foot Musculoskeletal Transplant [id number] / [id number] / Description:LOGGED AND YENIFER [place] Screw Frs [id number] - [id number] Implanted:Qty: 1 on 11/18/2006 at [facility] Right: Foot DEPUY [id number]# / / Screw Ti Cortex 1.3oyo23bd Self-Tapping - [id number] Implanted:Qty: 1 on 11/18/2006 at [facility] Right: Foot Ideatory [id number] # / / Screw Ti Cortex [id number] Self-Tapping - [id number] Implanted:Qty: 1 on 11/18/2006 at [facility] Right: Foot Depuy [employer] [phone] # / / Advance Directives * Full Code (Latest Code Status on File) Date Activated Date Inactivated Comments 11/18/2006 8:08 AM 11/18/2006 8:44 PM Care Teams Bed Bug Exterminator Relationship Specialty Start Date End Date Lilliam Luna MD [address] [place] [address] PCP - General Internal Medicine 11/07/21 None, Dr Isa Batista Physician Specialty 10/17/21
[2024-02-17 14:09] LABS: RBC Urine 0-2 (0-2); WBC Urine 0-2 (0-5)
[2024-02-17] MEDS: MECLIZINE HCL 25 MG TABLET PO (14:12)
[2024-02-17] MEDS: ONDANSETRON 2 MG/ML inj 4 MG IVP (14:13)
[2024-02-17] MEDS: 0.9 % SODIUM CHLORIDE 1000 ml 1,000 ML IV (14:13)
[2024-02-17 14:27] LABS: Basophils Absolute Auto 0.02 K/uL (0.00-0.30); Basophils Percent Auto 0.4 % (0.0-3.0); Eosinophils Absolute Auto 0.22 K/uL (0.00-0.50); Eosinophils Percent Auto 4.7 % (0.0-7.0); Hematocrit 38.3 % (33.0-51.0); Hemoglobin* 12.5 gm/dL (12.0-16.0); Immature Granulocytes Abs Auto 0.03 K/uL (0.00-0.30); Immature Granulocytes Pct Auto 0.6 %; Lymphocytes Absolute Auto 1.45 K/uL (0.90-2.90); Lymphocytes Percent Auto 30.9 % (20-44); Mean Corpuscular HGB Conc 33 gm/dL (32-36); Mean Corpuscular Hemoglobin 30 pg (26-34); Mean Corpuscular Volume 91 fL (80-100); Monocytes Percent Auto 9.6 % (0.0-11.0); Neutrophils Absolute Auto 2.52 K/uL (1.7-7.0); Neutrophils Percent Auto 53.8 % (42.0-72.0); Platelet Count* 233 K/uL (140-440); RDW Coefficient of Variation % 12.8 % (11.5-15.5); White Blood Count* 4.69 K/uL (4.50-11.00)
[2024-02-17 14:29] LABS: Slide Review Reflex No
[2024-02-17 14:31] LABS: Chloride* 104 mmol/L (96-114); Potassium* 3.8 mmol/L (3.6-5.1); Sodium* 141 mmol/L (135-149)
[2024-02-17 14:34] LABS: Anion Gap 8 mEq/L (7-15); Blood Urea Nitrogen* 7 mg/dL (7-30); Carbon Dioxide* 29 mmol/L (20-32); Creatinine* 0.6 mg/dL (0.5-1.5); Estimated Glomerular Filt Rate 90 ml/min; Glucose* 109 mg/dL (60-115)
[2024-02-17 14:35] LABS: Calcium* 10.1 mg/dL (8.4-10.6)
== END 2024-02-17 16:19 | disposition home or self-care (01) ==
PROVIDERS: Emergency Provider Emergency Medicine; PCP Nurse Practitioner Family
DX: R42 Dizziness and giddiness (principal)
CPT/HCPCS: 36415; 80048; 81001; 85025; 96374; 99283; 99284; A9270; J2405; J7030

== ENCOUNTER 2024-04-20 14:04 | Outpatient (CLI) | payer MEDICARE, SELFPAY ==
[2024-04-20 18:21] LABS: PCR FLU A Negative PCR FLU A (Negative); PCR FLU B Negative PCR FLU B (Negative); PCR RSV Negative PCR RSV (Negative); SARS PCR* Negative SARS-CoV-2 (Negative)
== END 2024-04-20 14:05 | disposition home or self-care (01) ==
PROVIDERS: PCP Nurse Practitioner Family; Visit Provider Nurse Practitioner Family
DX: R05.9 Cough, unspecified (principal)
CPT/HCPCS: 85025; 87631

== ENCOUNTER 2024-06-18 09:28 | Outpatient (CLI) | payer MEDICARE, SELFPAY | END 2024-06-18 09:29 | disposition home or self-care (01) | PROVIDERS: PCP Nurse Practitioner Family; Visit Provider Nurse Practitioner Family | DX: E53.8 Deficiency of other specified B group vitamins (principal); E78.00 Pure hypercholesterolemia, unspecified; R25.2 Cramp and spasm; D64.9 Anemia, unspecified | CPT/HCPCS: 80053; 80061; 82607; 83735; 85025 ==

== ENCOUNTER 2024-08-10 15:03 | Outpatient (CLI) | payer MEDICARE, SELFPAY ==
[2024-08-11 01:20] LABS: PCR FLU A Negative PCR FLU A (Negative); PCR FLU B Negative PCR FLU B (Negative); SARS PCR* Negative SARS-CoV-2 (Negative)
== END 2024-08-10 15:04 | disposition home or self-care (01) ==
PROVIDERS: PCP Nurse Practitioner Family; Visit Provider Nurse Practitioner Family
DX: R05.9 Cough, unspecified (principal)
CPT/HCPCS: 85025; 87631

== ENCOUNTER 2024-12-14 11:25 | Outpatient (CLI) | payer MEDICARE, SELFPAY | END 2024-12-14 11:26 | disposition home or self-care (01) | PROVIDERS: PCP Nurse Practitioner Family; Visit Provider Nurse Practitioner Family | DX: R63.4 Abnormal weight loss (principal); R11.2 Nausea with vomiting, unspecified; Z13.810 Encounter for screening for upper gastrointestinal disorder | CPT/HCPCS: 80053; 82150; 82784; 83690; 84443; 85025; 85651; 86140; 86231; 86258; 86364 ==

== ENCOUNTER 2024-12-28 12:54 | Outpatient (CLI) | payer MEDICARE, SELFPAY | END 2024-12-28 12:55 | disposition home or self-care (01) | LOC: NFLDREF 14:45 | PROVIDERS: PCP Nurse Practitioner Family; Referring Provider Nurse Practitioner Family; Visit Provider Nurse Practitioner Family | DX: N39.0 Urinary tract infection, site not specified (principal) | CPT/HCPCS: 81001; 87086 ==

== ENCOUNTER 2025-03-11 14:54 | Outpatient (CLI) | payer MEDICARE, SELFPAY | END 2025-03-11 14:55 | disposition home or self-care (01) | PROVIDERS: PCP Nurse Practitioner Family; Visit Provider Nurse Practitioner Family | DX: R63.4 Abnormal weight loss (principal); Z00.00 Encounter for general adult medical examination without abnormal findings | CPT/HCPCS: 80053; 85025 ==